=== PATIENT | male | born 1945 | race Caucasian/White ===

== ENCOUNTER → 2016-08-15 | Outpatient (CLI) | payer OTHER ==
[2016-08-15 10:33] LABS: BASO ABS # 0.06 K/uL (0-0.2); COMPLETE YES; HEMATOCRIT 40.7 % (42-52); IG% 0.2 %; LYMPH % 20.5 %; LYMPH ABS # 1.17 K/uL (1.2-3.4); MEAN CELL VOLUME 89.1 fL (80-100); MEAN CORPUSCULAR HEMOGLOBIN 30.2 pg (25-34); MEAN CORPUSCULAR HGB CONC 33.9 g/dl (32-36); MEAN PLATELET VOLUME 9.1 fL (7.4-10.4); MONO % 12.2 %; NEUT % 63.1 %; PLATELET COUNT 283 K/uL (130-400); RED BLOOD COUNT 4.57 M/uL (4.7-6.1); WHITE BLOOD COUNT 5.72 K/uL (4.8-10.8)
[2016-08-15 10:41] LABS: PROTHROMBIN TIME (PATIENT) 21.6 SECONDS (9.0-12.0)
[2016-08-15 11:00] LABS: ALT/SGPT 38 U/L (12-78); AST/SGOT 22 U/L (15-37); BLOOD UREA NITROGEN 20 mg/dl (7-18); BUN/CREATININE RATIO 16.7 (10-20); CARBON DIOXIDE 27 mmol/L (21-32); CHLORIDE 99 mmol/L (98-107); GLUCOSE 176 mg/dl (70-99); POTASSIUM 4.1 mmol/L (3.5-5.1); SODIUM 133 mmol/L (136-145)
[2016-08-15 11:05] LABS: ALB/GLOB RATIO 1.1 (0.9-2); ALKALINE PHOSPHATASE 53 U/L (45-117); CHOLESTEROL 194 mg/dl (0-200); HDL CHOLESTEROL 48 mg/dl; LDL CHOLESTEROL CALCULATED 115 mg/dl; TRIGLYCERIDES 154 mg/dl (0-150); VERY LOW DENSITY LIPOPROT CALC 31 mg/dl
[2016-08-15 11:13] LABS: RATIO 66.3 mcg/mg (0-30.0)
[2016-08-15 11:26] LABS: ESTIMATED AVERAGE GLUCOSE 151 mg/dl; HA1C FLAG Normal (Normal)
--- NOTE | 2016-08-21 09:49 | CODING QUERY MEDICAL NECESSITY ---
SUPPORTING DIAGNOSIS NEEDED A supporting diagnosis is required for the test/procedure performed on this patient in order for us to be reimbursed by the patient's insurance. Please provide a supporting diagnosis for the following test/procedure listed below next to the test name along with your signature. *If there is no additional diagnosis for this patient that would support the following test/procedure please document that below next to the test/procedure. Test(s)/Procedure(s) that require a supporting diagnosis: * VITAMIN B12 DIAGNOSIS: Provider Signature: Date: Thank you Lianna [place] [employer] Once completed, please kindly fax back to [phone] For questions please call [phone]
== END | disposition home or self-care (01) ==
LOC: C.LAB1850 09:55
PROVIDERS: ATTEND Internal Medicine
DX: E11.9 Type 2 diabetes mellitus without complications (principal); I10 Essential (primary) hypertension; Z12.5 Encounter for screening for malignant neoplasm of prostate; Z79.01 Long term (current) use of anticoagulants

== ENCOUNTER → 2016-09-12 | Outpatient (CLI) | payer OTHER ==
[2016-09-12 10:26] LABS: INR 1.7 (0.9-1.1); PROTHROMBIN TIME (PATIENT) 18.1 SECONDS (9.0-12.0)
== END | disposition home or self-care (01) ==
LOC: C.LAB1850 09:23
PROVIDERS: ATTEND Internal Medicine
DX: I51.3 Intracardiac thrombosis, not elsewhere classified (principal); Z79.01 Long term (current) use of anticoagulants

== ENCOUNTER 2017-05-04 11:41 | Inpatient (IN) | payer OTHER ==
[~2017-05-04] VITALS: Ht 177.8 cm; Wt 83.0 kg
[2017-05-04] MEDS ORDERED: ASPIRIN 81 MG CHEW PO STA (12:04)
--- NOTE | 2017-05-04 12:07 | EMERGENCY ROOM VISIT NOTE ---
History Report prepared by Carlos: Cara Marks Under the Supervision of: Dr. Martín Lucia M.D. First contact with patient: 11:59 Chief Complaint: ABDOMINAL PAIN Stated Complaint: DIAPHRAM PAIN -ABD Nursing Triage Summary: pt sent over from walk in clinic with c/o epigastric pain since sat. 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 Pain is sharp, located in the epigastric area. No radiation of the pain. He is accompanied by his who notes he has not been eating normally lately. He denies any blood in his stool or urine, nausea, vomiting, difficulty breathing, LOC, or chest pain. He rates the pain as a 6/10 in severity and describes it as "gas pains." Source of History: patient, spouse/significant other () Onset: 3 days sea captain Position: abdomen, other (diaphragm) Symptom Intensity: 6/10 Quality: other (persistent, gas pains) Timing: worsening Associated Symptoms: No LOC, No chest pain, No nausea, No vomiting, No hematochezia, No urinary symptoms Note: Negative difficulty breathing. Review of Systems See HPI for pertinent positives and negatives. A total of ten systems were reviewed and were otherwise negative. Family History Family history omitted secondary to the patient's age. Social History Smoking Status: Unknown if Ever Smoked Smokeless Tobacco Use: Unknown Marital Status: Occupation Status: retired Current/Historical Medications Scheduled Atorvastatin (Lipitor), 1 TAB PO DAILY Metformin Hcl (Glucophage), 500 MG PO BID Quinapril Hcl (Quinapril Hcl), 1 TAB PO DAILY Warfarin Sod (Jantoven), 7.5 MG PO DAILY Warfarin Sod (Jantoven), 10 MG PO DAILY Miscellaneous Medications Omeprazole (Prilosec), 10 MG PO Spironolactone (Aldactone), 25 MG PO Allergies Coded Allergies: No Known Allergies (Unverified , 05/04/17) Physical Exam Vital Signs Date Time Temp Pulse Resp B/P (MAP) Pulse Ox O2 Delivery O2 Flow Rate FiO2 05/04/17 17:03 107 16 137/88 95 Room Air 05/04/17 16:07 105 05/04/17 15:57 108 20 154/96 95 Room Air 05/04/17 14:54 99 18 116/66 95 Room Air 05/04/17 13:38 101 18 135/76 93 Room Air 05/04/17 12:09 97 Room Air 05/04/17 12:06 102 05/04/17 12:03 100 Room Air 05/04/17 11:47 36.8 123 18 145/96 96 Physical Exam Physical Exam GENERAL: He is oriented to person, place, and time. He appears well-developed and well-nourished. He does not appear distressed. ____ HENT: Exam performed. Head: Normocephalic and atraumatic. Right Ear: External ear normal. No mastoid tenderness. Left Ear: External ear normal. No mastoid tenderness. Mouth/Throat: The oropharynx is clear and moist. No trismus in the jaw. No dental abscesses or uvula swelling. No oropharyngeal exudate or tonsillar abscesses. ____ EYES: Conjunctivae and EOM are normal. Pupils are equal, round, and reactive to light. Right eye exhibits no discharge. Left eye exhibits no discharge. No scleral icterus. ____ NECK: Normal range of motion. Neck supple. No JVD present. No spinous process tenderness present. No carotid bruit present. No rigidity. No tracheal deviation and normal range of motion present. No Brudzinski's sign and no Kernig 's sign noted. ____ CV: Normal rate, regular rhythm, normal heart sounds and intact distal pulses. There is no peripheral edema. Palpable radial pulses bue. ____ PULM/CHEST: Effort normal and breath sounds normal. No respiratory distress. No stridor. He has no wheezes. He has no rales. Chest Wall: He exhibits no tenderness. ____ ABD: Abdomen soft, no guarding. Pain on palpation of the right upper quadrant region and epigastric area. Patton sign negative. No pain on palpation over McBurney's point. Rebound negative. Rovsing negative. MUSC/SKEL: Normal range of motion. There is no peripheral edema, tenderness or deformity. LYMPH: No cervical adenopathy. ____ NEURO: He is alert and oriented to person, place, and time. He has normal strength. No cranial nerve deficit or sensory deficit. Coordination and gait normal. GCS eye subscore is 4. GCS verbal subscore is 5. GCS motor subscore is 6. Cerebellar tests wnl. ____ SKIN: Skin is warm and dry. He is not diaphoretic. ____ PSYCH: He has a normal mood and affect. His behavior is normal. Judgment and thought content normal. ____ Medical Decision & Procedures ER Provider Diagnostic Interpretation: Radiology results as stated below per my review and radiologist interpretation: GALLBLADDER-ABD LIMITED HISTORY: 72 years-old Male ruq pain acute right upper quadrant abdominal pain COMPARISON: Acute abdominal series radiographs of same day TECHNIQUE: Multiple real-time sonogram images of the abdominal right upper quadrant were obtained assessing grayscale appearance and color flow FINDINGS: Pancreas is mostly obscured by bowel gas. Increased echogenicity of the hepatic parenchyma is noted without focal hepatic mass lesion or intrahepatic biliary ductal dilation. Diffusely sludge filled gallbladder is noted along with layering gallbladder stones. Edematous thickened gallbladder wall measures up to 6 mm. There is trace pericholecystic fluid with negative sonographic Patton sign. Common bile duct is mildly dilated for patient's age, 8 mm. No obstructing stone or biliary lesion identified. Imaged right kidney demonstrates no acute abnormality or hydronephrosis. IMPRESSION: 1. Diffusely sludge filled gallbladder is noted with layering cholelithiasis, gallbladder wall thickening and mild pericholecystic fluid. Sonographic Patton sign was reported as negative. Correlate clinically to exclude developing acute cholecystitis. 2. Mild dilation of the common bile duct, 8 mm without obstructing stone or lesion identified. 3. Increased echogenicity of the liver is nonspecific and may be secondary to fatty infiltration or fibrotic changes. The above report was generated using voice recognition software. It may contain grammatical, syntax or spelling errors. Electronically signed by: Jonnathan Larson M.D. 05/04/2017 1:31 PM Dictated Date/Time: 05/04/2017 1:28 PM ABDOMEN 2VIEW W/PA CHEST RTN HISTORY: 72 years-old Male epigastric pain cp acute epigastric and atypical chest pain COMPARISON: Right upper quadrant ultrasound of same day TECHNIQUE: PA view the chest with erect and supine views of the abdomen FINDINGS: Cardiac mediastinal and hilar silhouettes are within normal limits. Hazy subsegmental right basilar opacities. Atherosclerosis of the aorta. No pneumothorax, pleural effusion or overt pulmonary edema. Bones of the chest appear grossly intact. Cholelithiasis of the abdominal right upper quadrant with 6 mm gallstone. Linear 4 mm density of the left upper abdomen suggests renal calculus. No pneumoperitoneum or pneumatosis. Bowel gas pattern is nonobstructive. Moderate volume of formed stool involves the cecum and splenic flexure. No fracture. Degenerative changes of the hips and spine. IMPRESSION: 1. Nonobstructive bowel gas pattern. 2. Subsegmental right basilar opacities suggest atelectasis. 3. Cholelithiasis. 4. 4 mm density of the left upper abdomen suggests possible renal calculus. The above report was generated using voice recognition software. It may contain grammatical, syntax or spelling errors. Electronically signed by: Jonnathan Larson M.D. 05/04/2017 1:46 PM Dictated Date/Time: 05/04/2017 1:43 PM Laboratory Results 05/04/17 12:10 Red Blood Count 4.60, Mean Corpuscular Volume 88.0, Mean Corpuscular Hemoglobin 31.7, Mean Corpuscular Hemoglobin Concent 36.0, Mean Platelet Volume 9.1, Neutrophils (%) (Auto) 76.3, Lymphocytes (%) (Auto) 9.5, Monocytes (%) (Auto) 13.4, Eosinophils (%) (Auto) 0.2, Basophils (%) (Auto) 0.4, Neutrophils # (Auto ) 10.90, Lymphocytes # (Auto) 1.35, Monocytes # (Auto) 1.91, Eosinophils # (Auto ) 0.03, Basophils # (Auto) 0.05 05/04/17 12:10 Test 05/04/17 12:10 05/04/17 16:20 White Blood Count 14.27 K/uL (4.8-10.8) Red Blood Count 4.60 M/uL (4.7-6.1) Hemoglobin 14.6 g/dL (14.0-18.0) Hematocrit 40.5 % (42-52) Mean Corpuscular Volume 88.0 fL (80-100) Mean Corpuscular Hemoglobin 31.7 pg (25-34) Mean Corpuscular Hemoglobin Concent 36.0 g/dl (32-36) Platelet Count 291 K/uL (130-400) Mean Platelet Volume 9.1 fL (7.4-10.4) Neutrophils (%) (Auto) 76.3 % Lymphocytes (%) (Auto) 9.5 % Monocytes (%) (Auto) 13.4 % Eosinophils (%) (Auto) 0.2 % Basophils (%) (Auto) 0.4 % Neutrophils # (Auto) 10.90 K/uL (1.4-6.5) Lymphocytes # (Auto) 1.35 K/uL (1.2-3.4) Monocytes # (Auto) 1.91 K/uL (0.11-0.59) Eosinophils # (Auto) 0.03 K/uL (0-0.5) Basophils # (Auto) 0.05 K/uL (0-0.2) RDW Standard Deviation 41.7 fL (36.4-46.3) RDW Coefficient of Variation 13.1 % (11.5-14.5) Immature Granulocyte % (Auto) 0.2 % Immature Granulocyte # (Auto) 0.03 K/uL (0.00-0.02) Prothrombin Time 19.0 SECONDS (9.0-12.0) Prothromb Time International Ratio 1.8 (0.9-1.1) Activated Partial Thromboplast Time 35.9 SECONDS (21.0-31.0) Partial Thromboplastin Ratio 1.4 Anion Gap 10.0 mmol/L (3-11) Est Creatinine Clear Calc Drug Dose 55.3 ml/min Estimated GFR () 67.9 Estimated GFR (Non- 58.6 BUN/Creatinine Ratio 12.0 (10-20) Calcium Level 9.3 mg/dl (8.5-10.1) Total Bilirubin 1.1 mg/dl (0.2-1) Direct Bilirubin 0.3 mg/dl (0-0.2) Aspartate Amino Transf (AST/SGOT) 18 U/L (15-37) Alanine Aminotransferase (ALT/SGPT) 39 U/L (12-78) Alkaline Phosphatase 67 U/L (45-117) Pro-B-Type Natriuretic Peptide 317 pg/ml (0-900) Total Protein 8.0 gm/dl (6.4-8.2) Albumin 3.9 gm/dl (3.4-5.0) Lipase 137 U/L (73-393) Laboratory results reviewed by me Pol[place] Administered Medications (Trade) Dose Ordered Sig/Yvan Route Start Time Stop Time Status Last Admin Dose Admin Aspirin (Aspirin Chew) 324 mg NOW STAT PO 05/04/17 12:04 05/04/17 12:07 DC 05/04/17 12:10 324 MG Ceftriaxone Sodium (Rocephin Inj) 1 gm NOW STAT IV 05/04/17 15:24 05/04/17 15:25 DC 05/04/17 15:41 1 GM Metronidazole (Flagyl / Nss) 500 mg NOW STAT IV 05/04/17 15:24 05/04/17 15:25 DC 05/04/17 15:41 500 MG ECG Per My Interpretation Indication: abdominal pain Rate (beats per minute): 99 Rhythm: normal sinus Findings: other ([place] and QRS and QTC within normal limits, no ST elevation or depression ) ED Course 1200: The patient was evaluated in room B12. A complete history and physical exam was performed. 1602: Patient tachycardic. Labs show leukocytosis of 14. Alkaline phosphatase and LFTs within normal limits. Ultrasound of the right upper quadrant was concerning for cholecystitis. Discussed with GI the possibility that there could be a component of choledocholithiasis, however they disagreed given that there is no elevation in alkaline or LFTs. Dr. Hardin surgery application support intern evaluated the patient. He states the patient will be admitted to the medicine service and he will perform surgery on Saturday. He agreed with the antibiotics Rocephin and Flagyl to be given. 1650: Discussed the patient's case with Dr. Levi, [facility] Hospitalist. The patient will be evaluated for further treatment and disposition. Medical Decision Labs show leukocytosis of 14. Alkaline phosphatase and LFTs within normal limits. Ultrasound of the right upper quadrant was concerning for cholecystitis. Discussed with GI the possibility that there could be a component of choledocholithiasis, however they disagreed given that there is no elevation in alkaline or LFTs. Dr. Hardin surgery application support intern evaluated the patient. He states the patient will be admitted to the medicine service and he will perform surgery on Saturday. He agreed with the antibiotics Rocephin and Flagyl to be given. Medication Reconcilliation Current Medication List: was personally reviewed by me Blood Pressure Screening Patient's blood pressure: Normal blood pressure Blood pressure disposition: Did not require urgent referral Consults Time Called: 1531 Consulting Physician: Dr. Hardin, [facility] thoracic surgeon Returned Call: [phone] He evaluated the patient. He states the patient will be admitted to the medicine service and he will perform surgery on Saturday. Additional Consults: Time Called: 1644 Consulted Physician: Dr. Levi, [facility] Hospitalist Returned Call: [phone] Additional Comments: Discussed the patient's case. The patient will be evaluated for further treatment and disposition. Impression Primary Impression: Acute cholecystitis Scribe Attestation The scribe's documentation has been prepared under my direction and personally reviewed by me in its entirety. I confirm that the note above accurately reflects all work, treatment, procedures, and medical decision making performed by me. The chart was completed utilizing [email or web address] Speech voice recognition software. Grammatical errors, random word insertions, pronoun errors, and incomplete sentences are an occasional consequence of this system due to software limitations, ambient noise, and hardware issues. Any formal questions or concerns about the content, text, or information contained within the body of this dictation should be directly addressed to the physician for clarification. Departure Information Dispostion Being Evaluated By Hospitalist (Dr. Levi, [facility] Hospitalist) Referrals RV. Lopez MD (PCP) Patient Instructions My [facility]
[2017-05-04 12:32] LABS: BASO % 0.4 %; BASO ABS # 0.05 K/uL (0-0.2); EOS % 0.2 %; EOS ABS # 0.03 K/uL (0-0.5); HEMATOCRIT 40.5 % (42-52); HEMOGLOBIN 14.6 g/dL (14.0-18.0); IG# 0.03 K/uL (0.00-0.02); LYMPH % 9.5 %; LYMPH ABS # 1.35 K/uL (1.2-3.4); MEAN CORPUSCULAR HEMOGLOBIN 31.7 pg (25-34); MEAN PLATELET VOLUME 9.1 fL (7.4-10.4); MONO % 13.4 %; MONO ABS # 1.91 K/uL (0.11-0.59); NEUT % 76.3 %; PLATELET COUNT 291 K/uL (130-400); RED CELL DISTRIBUTION WIDTH CV 13.1 % (11.5-14.5); RED CELL DISTRIBUTION WIDTH SD 41.7 fL (36.4-46.3); WHITE BLOOD COUNT 14.27 K/uL (4.8-10.8)
[2017-05-04] MEDS ORDERED: GLC/500 PO (12:41)
[2017-05-04] MEDS ORDERED: WARF7.5T4 PO (12:41)
[2017-05-04] MEDS ORDERED: ATOR-24 PO (12:41)
[2017-05-04] MEDS ORDERED: QUIN20TA30 PO (12:41)
[2017-05-04] MEDS ORDERED: OMEP10CA4 PO (12:41)
[2017-05-04] MEDS ORDERED: SPIR25TA PO (12:41)
[2017-05-04] MEDS ORDERED: WARF10TA4 PO (12:41)
[2017-05-04 12:44] LABS: ALBUMIN 3.9 gm/dl (3.4-5.0); ALT/SGPT 39 U/L (12-78); AST/SGOT 18 U/L (15-37); BLOOD UREA NITROGEN 15 mg/dl (7-18); CALCIUM 9.3 mg/dl (8.5-10.1); CARBON DIOXIDE 24 mmol/L (21-32); CREATININE 1.21 mg/dl (0.60-1.40); GLUCOSE 221 mg/dl (70-99); INR 1.8 (0.9-1.1); LIPASE 137 U/L (73-393); POTASSIUM 4.2 mmol/L (3.5-5.1); PTT PATIENT 35.9 SECONDS (21.0-31.0); SODIUM 131 mmol/L (136-145)
[2017-05-04 12:49] LABS: ALKALINE PHOSPHATASE 67 U/L (45-117)
--- NOTE | 2017-05-04 13:32 | DIAGNOSTIC IMAGING REPORT ---
GALLBLADDER-ABD LIMITED HISTORY: 72 years-old Male ruq pain acute right upper quadrant abdominal pain COMPARISON: Acute abdominal series radiographs of same day TECHNIQUE: Multiple real-time sonogram images of the abdominal right upper quadrant were obtained assessing grayscale appearance and color flow FINDINGS: Pancreas is mostly obscured by bowel gas. Increased echogenicity of the hepatic parenchyma is noted without focal hepatic mass lesion or intrahepatic biliary ductal dilation. Diffusely sludge filled gallbladder is noted along with layering gallbladder stones. Edematous thickened gallbladder wall measures up to 6 mm. There is trace pericholecystic fluid with negative sonographic Patton sign. Common bile duct is mildly dilated for patient's age, 8 mm. No obstructing stone or biliary lesion identified. Imaged right kidney demonstrates no acute abnormality or hydronephrosis. IMPRESSION: 1. Diffusely sludge filled gallbladder is noted with layering cholelithiasis, gallbladder wall thickening and mild pericholecystic fluid. Sonographic Patton sign was reported as negative. Correlate clinically to exclude developing acute cholecystitis. 2. Mild dilation of the common bile duct, 8 mm without obstructing stone or lesion identified. 3. Increased echogenicity of the liver is nonspecific and may be secondary to fatty infiltration or fibrotic changes. The above report was generated using voice recognition software. It may contain grammatical, syntax or spelling errors. Electronically signed by: Jonnathan Larson M.D. 05/04/2017 1:31 PM Dictated Date/Time: 05/04/2017 1:28 PM
--- NOTE | 2017-05-04 13:47 | DIAGNOSTIC IMAGING REPORT ---
ABDOMEN 2VIEW W/PA CHEST RTN HISTORY: 72 years-old Male epigastric pain cp acute epigastric and atypical chest pain COMPARISON: Right upper quadrant ultrasound of same day TECHNIQUE: PA view the chest with erect and supine views of the abdomen FINDINGS: Cardiac mediastinal and hilar silhouettes are within normal limits. Hazy subsegmental right basilar opacities. Atherosclerosis of the aorta. No pneumothorax, pleural effusion or overt pulmonary edema. Bones of the chest appear grossly intact. Cholelithiasis of the abdominal right upper quadrant with 6 mm gallstone. Linear 4 mm density of the left upper abdomen suggests renal calculus. No pneumoperitoneum or pneumatosis. Bowel gas pattern is nonobstructive. Moderate volume of formed stool involves the cecum and splenic flexure. No fracture. Degenerative changes of the hips and spine. IMPRESSION: 1. Nonobstructive bowel gas pattern. 2. Subsegmental right basilar opacities suggest atelectasis. 3. Cholelithiasis. 4. 4 mm density of the left upper abdomen suggests possible renal calculus. The above report was generated using voice recognition software. It may contain grammatical, syntax or spelling errors. Electronically signed by: Jonnathan Larson M.D. 05/04/2017 1:46 PM Dictated Date/Time: 05/04/2017 1:43 PM
[2017-05-04] MEDS ORDERED: METRONIDAZOLE 500MG / 100ML NSS IV STA (15:24)
[2017-05-04] MEDS ORDERED: CEFTRIAXONE SOD INJ 1 GM ADDVIAL IV STA (15:24)
[2017-05-04] MEDS ORDERED: VANCOMYCIN 1GM/270ML NSS IV STA (16:20)
--- NOTE | 2017-05-04 16:26 | Surgery Consultation ---
Consultation Date of Consultation: May 04, 2017. Attending Physician: History of Present Illness The patient is a 72 year old male who presents to the Emergency Room with complaints of worsening and persistent abdominal pain and diaphragm pain beginning 3 days [employer]. He is accompanied by his who notes he has not been eating normally lately. He denies any blood in his stool or urine, nausea, vomiting, difficulty breathing, LOC, or chest pain. He rates the pain as a 6.10 in severity and describes it as "gas pains." I saw pt at ER, and reviewed pt's H/P with pt, pt is still have epigastric pain , with nausea, no vomiting, pt denies fever, no diarrhea, Past Medical/Surgical History Medical Problems: (1) Acute cholecystitis Status: Acute Social History Smoking Status: Former Smoker Smokeless Tobacco Use: No Alcohol Use: occasionally Drug Use: none Marital Status: Occupation Status: retired Allergies Coded Allergies: No Known Allergies (Unverified , 05/04/17) Home Medications Scheduled Atorvastatin (Lipitor), 1 TAB PO DAILY Metformin Hcl (Glucophage), 500 MG PO BID Quinapril Hcl (Quinapril Hcl), 1 TAB PO DAILY Warfarin Sod (Jantoven), 7.5 MG PO DAILY Warfarin Sod (Jantoven), 10 MG PO DAILY Miscellaneous Medications Omeprazole (Prilosec), 10 MG PO Spironolactone (Aldactone), 25 MG PO Review of Systems Constitutional: No fever, No chills, No sweats, No weight loss, No weakness, No fatigue, No problem reported Eyes: No worsening of vision, No eye pain, No redness, No discharge, No diplopia, No problem reported ENT: No hearing loss, No unusual epistaxis, No nasal symptoms, No sore throat, No tinnitus, No dental problems, No trouble swallowing, No problem reported Respiratory: No cough, No sputum, No wheezing, No shortness of breath, No dyspnea on exertion, No dyspnea at rest, No hemoptysis, No problem reported Cardiovascular: + chest pain, + problem reported (GA > 10 years) Abdomen: + pain, + nausea, + vomiting Musculoskeletal: No joint pain, No muscle pain, No swelling, No calf pain, No problem reported Genitourinary - Male: No hematuria, No dysuria, No urinary frequency, No urinary urgency, No urinary hesitancy, No urinary retention, No urinary incontinence, No penile discharge, No lesions, No impotence, No problem reported Neurologic: + problem reported (stroke ) Psychiatric: No depression symptoms, No anhedonism, No anxiety, No insomnia, No substance abuse, No problem reported Endocrine: No fatigue, No excessive thirst, No excessive urination, No problem reported Hematologic / Lymphatic: No abnormal bleeding/bruising, No clotting problems, No swollen lymph nodes, No night sweats, No problem reported Allergic / Immunologic: No environmental allergies, No seasonal allergies, No pet sensitivities, No food allergies, No hives, No frequent infections, No poor healing, No prolonged convalescence, No problem reported Physical Exam Date Time Temp Pulse Resp B/P (MAP) Pulse Ox O2 Delivery O2 Flow Rate FiO2 05/04/17 16:07 105 05/04/17 15:57 108 20 154/96 95 Room Air 05/04/17 14:54 99 18 116/66 95 Room Air 05/04/17 13:38 101 18 135/76 93 Room Air 05/04/17 12:09 97 Room Air 05/04/17 12:06 102 05/04/17 12:03 100 Room Air 05/04/17 11:47 36.8 123 18 145/96 96 General Appearance: WD/WN, + mild distress Head: normocephalic Eyes: normal inspection ENT: normal ENT inspection Neck: supple, no JVD Respiratory/Chest: chest non-tender, lungs clear Cardiovascular: regular rate, rhythm, no edema, no gallop, no JVD, no murmur Abdomen/GI: normal bowel sounds, soft, no organomegaly, no pulsatile mass, normal rectal exam, + tenderness (at epigastric area, no rebound pain) Extremities/Musculoskelatal: normal inspection, no calf tenderness, normal capillary refill Neurologic/Psych: no motor/sensory deficits, alert, normal mood/affect Skin: normal color, warm/dry, no rash Lymphatic: no adenopathy Laboratory Results Last 24 Hours Test 05/04/17 12:10 White Blood Count 14.27 K/uL Red Blood Count 4.60 M/uL Hemoglobin 14.6 g/dL Hematocrit 40.5 % Mean Corpuscular Volume 88.0 fL Mean Corpuscular Hemoglobin 31.7 pg Mean Corpuscular Hemoglobin Concent 36.0 g/dl Platelet Count 291 K/uL Mean Platelet Volume 9.1 fL Neutrophils (%) (Auto) 76.3 % Lymphocytes (%) (Auto) 9.5 % Monocytes (%) (Auto) 13.4 % Eosinophils (%) (Auto) 0.2 % Basophils (%) (Auto) 0.4 % Neutrophils # (Auto) 10.90 K/uL Lymphocytes # (Auto) 1.35 K/uL Monocytes # (Auto) 1.91 K/uL Eosinophils # (Auto) 0.03 K/uL Basophils # (Auto) 0.05 K/uL RDW Standard Deviation 41.7 fL RDW Coefficient of Variation 13.1 % Immature Granulocyte % (Auto) 0.2 % Immature Granulocyte # (Auto) 0.03 K/uL Prothrombin Time 19.0 SECONDS Prothromb Time International Ratio 1.8 Activated Partial Thromboplast Time 35.9 SECONDS Partial Thromboplastin Ratio 1.4 Sodium Level 131 mmol/L Potassium Level 4.2 mmol/L Chloride Level 97 mmol/L Carbon Dioxide Level 24 mmol/L Anion Gap 10.0 mmol/L Blood Urea Nitrogen 15 mg/dl Creatinine 1.21 mg/dl Est Creatinine Clear Calc Drug Dose 55.3 ml/min Estimated GFR () 67.9 Estimated GFR (Non- 58.6 BUN/Creatinine Ratio 12.0 Random Glucose 221 mg/dl Calcium Level 9.3 mg/dl Total Bilirubin 1.1 mg/dl Direct Bilirubin 0.3 mg/dl Aspartate Amino Transf (AST/SGOT) 18 U/L Alanine Aminotransferase (ALT/SGPT) 39 U/L Alkaline Phosphatase 67 U/L Troponin I < 0.015 ng/ml Pro-B-Type Natriuretic Peptide 317 pg/ml Total Protein 8.0 gm/dl Albumin 3.9 gm/dl Lipase 137 U/L Assessment & Plan U/S study-FINDINGS: Pancreas is mostly obscured by bowel gas. Increased echogenicity of the hepatic parenchyma is noted without focal hepatic mass lesion or intrahepatic biliary ductal dilation. Diffusely sludge filled gallbladder is noted along with layering gallbladder stones. Edematous thickened gallbladder wall measures up to 6 mm. There is trace pericholecystic fluid with negative sonographic Patton sign. Common bile duct is mildly dilated for patient's age, 8 mm. No obstructing stone or biliary lesion identified. Imaged right kidney demonstrates no acute abnormality or hydronephrosis. IMPRESSION: 1. Diffusely sludge filled gallbladder is noted with layering cholelithiasis, gallbladder wall thickening and mild pericholecystic fluid. Sonographic Patton sign was reported as negative. Correlate clinically to exclude developing acute cholecystitis. 2. Mild dilation of the common bile duct, 8 mm without obstructing stone or lesion identified. 3. Increased echogenicity of the liver is nonspecific and may be secondary to fatty infiltration or fibrotic changes. Assessment: pt is a 72 year old male who presents to ER with acute abdominal pain, U/S study- acute cholecystitis with gallstones. IMP:acute cholecystitis with gallstones. Plan, I re: hospitalist will admit pt, hold coumadin for 2 days, continue po 81 mg ASA once a day, IV fluid, iv antibiotic, cipro + glagyl, pt will have laparoscopic cholecystectomy, possible open or cholangiogram on Saturday, NPO from [place] on Saturday, D/W benefits, risks and alternatives of the surgery, pt understood, he and his agree with [facility] plan. I answered all questions,
[2017-05-04] MEDS ORDERED: GLUCOSE 10 TABS/TUBE PO PRN (16:30)
[2017-05-04] MEDS ORDERED: NITROGLYCERIN 0.4 MG SL PER TAB CHARGE SL PRN (16:30)
[2017-05-04] MEDS ORDERED: ACETAMINOPHEN 325 MG TAB PO PRN (16:30)
[2017-05-04] MEDS ORDERED: MAGNESIUM HYDROXIDE SUSP 30 ML UDC PO PRN (16:30)
[2017-05-04] MEDS ORDERED: ALUMINUM/MAGNESIUM/SIMETH (MAALOX MAX) 30 ML UDC PO PRN (16:30)
[2017-05-04] MEDS ORDERED: GLUCOSE 40% GEL 15 GM TUBE PO PRN (16:30)
[2017-05-04] MEDS ORDERED: ONDANSETRON INJ 2 MG/ML 2 ML VIAL IV PRN (16:30)
[2017-05-04] MEDS ORDERED: GLUCAGON FOR INJ 1 MG VIAL SQ PRN (16:30)
[2017-05-04] MEDS ORDERED: ZOLPIDEM TARTRATE 5 MG TAB PO PRN ×2 (16:30)
[2017-05-04] MEDS ORDERED: HydrALAZINE HCL 20 MG/ML VIAL IV. PRN (16:30)
[2017-05-04] MEDS ORDERED: ENOXAPARIN 30 MG/0.3 ML SYR SC SCH (16:30)
[2017-05-04] MEDS ORDERED: PIPERACILL/TAZOBAC CONSULT ACTIVE PRN (16:30)
[2017-05-04] MEDS ORDERED: DEXTROSE 50% 50 ML SYR IV PRN (16:30)
[2017-05-04] MEDS ORDERED: POLYETHYLENE (MIRALAX) 17 GM PACK PO PRN (16:30)
[2017-05-04] MEDS ORDERED: VANCOMYCIN INJ 2,000 MG in SODIUM CHLORIDE 0.9% 500ML 500 ML IV SCH (17:00)
[2017-05-04] MEDS ORDERED: PIPERACILL/TAZOBAC IV 4.5 GM in DEXTROSE 5% 100ML IV ONE (17:00)
[2017-05-04] MEDS ORDERED: VANCOMYCIN CONSULT ACTIVE PRN (17:00)
[2017-05-04] MEDS ORDERED: FAMOTIDINE 20MG/5ML IV PUSH IV STA (17:05)
[2017-05-04] MEDS ORDERED: PIPERACILLIN/TAZOBACTAM 4.5 GM/100ML D5W ONE (17:10)
--- NOTE | 2017-05-04 17:21 | History and Physical ---
History & Physical Date & Time of Service: May 04, 2017 at 17:07 Chief Complaint: Diaphram Pain -Abd Primary Care Physician: RV. Lopez MD History of Present Illness Source: patient, family 72 years old man with PMHx HTN, Dyslipidemia, DMII, CVA, left ventricular thrombus on chronic AC by coumadin and Hx of bradycardia on B sandro. He was in his regular state of health until 2 days prior to admission, patient suddenly at night had mid epigastric and right upper quadrant abdominal pain 9/ 10. No associated nausea or vomiting. Denies any diarrhea or blood in stool. Patient took Gas-X because he thought it gas pain. As per patient pain slightly subsided. Next morning pain reoccurred but was less intense. Patient felt the pain more towards the epigastric area rather than the right upper quadrant. Again no association with any nausea or vomiting or diarrhea. He qualify the pain as 5/10. He presented to the ED for further evaluation and management, his INR was 1.8. He was seen by surgeon who would like to hold Coumadin until Saturday and proceed with cholecystectomy. Does not smoke or drink denies any fever or chills Social History Smoking Status: Former Smoker Smokeless Tobacco Use: No Alcohol Use: occasionally Drug Use: none Marital Status: Occupational Status: retired Allergies Coded Allergies: No Known Allergies (Unverified , 05/04/17) Home Medications Scheduled Atorvastatin (Lipitor), 1 TAB PO DAILY Metformin Hcl (Glucophage), 500 MG PO BID Quinapril Hcl (Quinapril Hcl), 1 TAB PO DAILY Warfarin Sod (Jantoven), 7.5 MG PO DAILY Warfarin Sod (Jantoven), 10 MG PO DAILY Miscellaneous Medications Omeprazole (Prilosec), 10 MG PO Spironolactone (Aldactone), 25 MG PO Review of Systems Review of system Constitutional: No fever / no chills / no sweats / no weakness / no fatigue Eyes: no blurring of vision / no eye pain / no discharge / no redness ENT: no hearing loss / no epistaxis /no swallowing problems Respiratory: no cough / no wheezing / no SOB / no hemoptysis Cardiovascular: no Chest pain / no lower extremity edema / no palpitation Abdomen: Right upper quadrant and epigastric pain / no nausea / no vomiting / no constipation Musculoskeletal: no joint pain / no muscle pain / no joint swelling Genitourinary: no dysuria / no incontinence / no urinary retention Neurologic: no focal weakness / no numbness/tingling / no ataxia Psychiatric: no depression symptoms / no anxiety / no insomnia Endocrine: no excessive thirst / no excessive urination Hematologic: no abnormal bleeding / no bruising / no LN swelling Skin: No rash / no pallor Physical Exam Vital Signs Date Time Temp Pulse Resp B/P (MAP) Pulse Ox O2 Delivery O2 Flow Rate FiO2 05/04/17 16:07 105 05/04/17 15:57 108 20 154/96 95 Room Air 05/04/17 14:54 99 18 116/66 95 Room Air 05/04/17 13:38 101 18 135/76 93 Room Air 05/04/17 12:09 97 Room Air 05/04/17 12:06 102 05/04/17 12:03 100 Room Air 05/04/17 11:47 36.8 123 18 145/96 96 Physical examination General patient appears to be comfortable, not in acute distress HEENT: Atraumatic , normocephalic /no jaundice /no pallor /anicteric /no dry mucous membrane /normal external ear inspection Neck: Supple /no swelling /central trach Heart: S1/S2 normal/regular rate and rhythm/no gallop /no rub /no murmur Lungs: Clear to auscultation bilaterally/normal chest with expansion/no rhonchi/ no rales/no wheezing/no use of accessory muscles of respiration Abdomen: Soft/mild tenderness on the epigastric area/no guarding/no rebound/no organomegaly/no pulsatile mass Musculoskeletal: No swelling/no edema/no tenderness/normal range of motion Neuro exam: Awake alert oriented 3/cranial nerves II through XII appear to be intact/sensation intact/moves all extremities/no abnormal movements Psychiatric evaluation: No depressed mood/normal affect Skin: No rash on exposed skin area/no erythema Extremity: Normal pulse/no pitting edema/no clubbing or cyanosis Endocrine/lymphatic: No obvious lymphadenopathy /no lymphedema Diagnostics Laboratory Results Results Past 24 Hours Test 05/04/17 12:10 05/04/17 16:20 Range/Units White Blood Count 14.27 4.8-10.8 K/uL Red Blood Count 4.60 4.7-6.1 M/uL Hemoglobin 14.6 14.0-18.0 g/dL Hematocrit 40.5 42-52 % Mean Corpuscular Volume 88.0 80-100 fL Mean Corpuscular Hemoglobin 31.7 25-34 pg Mean Corpuscular Hemoglobin Concent 36.0 32-36 g/dl Platelet Count 291 130-400 K/uL Mean Platelet Volume 9.1 7.4-10.4 fL Neutrophils (%) (Auto) 76.3 % Lymphocytes (%) (Auto) 9.5 % Monocytes (%) (Auto) 13.4 % Eosinophils (%) (Auto) 0.2 % Basophils (%) (Auto) 0.4 % Neutrophils # (Auto) 10.90 1.4-6.5 K/uL Lymphocytes # (Auto) 1.35 1.2-3.4 K/uL Monocytes # (Auto) 1.91 0.11-0.59 K/uL Eosinophils # (Auto) 0.03 0-0.5 K/uL Basophils # (Auto) 0.05 0-0.2 K/uL RDW Standard Deviation 41.7 36.4-46.3 fL RDW Coefficient of Variation 13.1 11.5-14.5 % Immature Granulocyte % (Auto) 0.2 % Immature Granulocyte # (Auto) 0.03 0.00-0.02 K/uL Prothrombin Time 19.0 9.0-12.0 SECONDS Prothromb Time International Ratio 1.8 0.9-1.1 Activated Partial Thromboplast Time 35.9 21.0-31.0 SECONDS Partial Thromboplastin Ratio 1.4 Sodium Level 131 136-145 mmol/L Potassium Level 4.2 3.5-5.1 mmol/L Chloride Level 97 98-107 mmol/L Carbon Dioxide Level 24 21-32 mmol/L Anion Gap 10.0 3-11 mmol/L Blood Urea Nitrogen 15 7-18 mg/dl Creatinine 1.21 0.60-1.40 mg/dl Est Creatinine Clear Calc Drug Dose 55.3 ml/min Estimated GFR () 67.9 Estimated GFR (Non- 58.6 BUN/Creatinine Ratio 12.0 10-20 Random Glucose 221 70-99 mg/dl Calcium Level 9.3 8.5-10.1 mg/dl Total Bilirubin 1.1 0.2-1 mg/dl Direct Bilirubin 0.3 0-0.2 mg/dl Aspartate Amino Transf (AST/SGOT) 18 15-37 U/L Alanine Aminotransferase (ALT/SGPT) 39 12-78 U/L Alkaline Phosphatase 67 45-117 U/L Troponin I < 0.015 0-0.045 ng/ml Pro-B-Type Natriuretic Peptide 317 0-900 pg/ml Total Protein 8.0 6.4-8.2 gm/dl Albumin 3.9 3.4-5.0 gm/dl Lipase 137 73-393 U/L Microbiology Results 05/04/17 Blood Culture, Ordered Pending 05/04/17 Blood Culture, Ordered Pending Impression Assessment and Plan 72 years old man with PMHx HTN, Dyslipidemia, DMII, CVA, left ventricular thrombus on chronic AC by coumadin and Hx of bradycardia on B sandro. Presented with 2 days history of abdominal epigastric and right upper quadrant pain suggestive of acute cholecystitis. 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 Hold Coumadin and start heparin drip low dose from tomorrow morning, as per patient his INR has been ranging from 1.9-2.5 Consult cardiology for clearance for cholecystectomy. Hold metformin and start patient on sliding scale insulin Hold Aldactone and ANDRES inhibitor, start patient on IV fluid hydration Hydralazine as needed elevated blood pressure Avoid beta-sandro for now Pain management Pepcid IV 1 followed by Protonix daily SCD boots for DVT prophylaxis plus heparin drip Hold heparin drip prior to the surgery N.p.o. from Saturday. Plan discussed with surgeon Dr. Guzmán who recommended patient on full liquid diet until Saturday night Resuscitation Status VTE Prophylaxis Will order VTE Prophylaxis: Yes
[2017-05-04 18:00] VITALS: BP 151/87; PULSE 115; TEMP 37; O2SAT 93; Ht 177.8 cm; Wt 83.0 kg
[2017-05-04] MEDS ORDERED: FAMOTIDINE IV INJ 20 MG in SYRINGE 3 ML IV SCH (18:15)
[2017-05-04 18:21] VITALS: BP 151/87; PULSE 115; TEMP 37
[2017-05-04] MEDS ORDERED: NSS + 20MEQ KCL 1000ML 1,000 ML IV SCH ×2 (18:30→18:45)
[2017-05-04 18:33] VITALS: O2SAT 93
[2017-05-04] MEDS: SODIUM CHLORIDE 0.9% 1000ML 1,000 ML IV SCH (18:43)
[2017-05-04] MEDS: LACTOBACILLUS ACIDOPHILUS 1 GM PACK PO SCH (18:51)
[2017-05-04] MEDS: INSULIN ASPART 100 UNITS/ML 3 ML PEN SC SCH ×2 (18:55→20:56)
--- NOTE | 2017-05-04 19:11 | Pharmacy Progress Note ---
Pharmacy Antibiotic Consult Date of Service: May 04, 2017. Pharmacy Dosing Scope Pharmacy is consulted to initiate vancomycin and Zosyn IV dosing therapy, order appropriate labs and adjust drug dose/frequency. Subjective The patient is a 72 year old male admitted on May 04, 2017 at 16:45 with cholecystitis. History of type 2 diabetes. Objective Height (Feet): 5 Height (Inches): 10.00 Weight (Kilograms): 81.000 Lab Results (24hrs): Test 05/04/17 12:10 05/04/17 18:26 05/04/17 18:29 White Blood Count 14.27 K/uL (4.8-10.8) Red Blood Count 4.60 M/uL (4.7-6.1) Hemoglobin 14.6 g/dL (14.0-18.0) Hematocrit 40.5 % (42-52) Mean Corpuscular Volume 88.0 fL (80-100) Mean Corpuscular Hemoglobin 31.7 pg (25-34) Mean Corpuscular Hemoglobin Concent 36.0 g/dl (32-36) Platelet Count 291 K/uL (130-400) Mean Platelet Volume 9.1 fL (7.4-10.4) Neutrophils (%) (Auto) 76.3 % Lymphocytes (%) (Auto) 9.5 % Monocytes (%) (Auto) 13.4 % Eosinophils (%) (Auto) 0.2 % Basophils (%) (Auto) 0.4 % Neutrophils # (Auto) 10.90 K/uL (1.4-6.5) Lymphocytes # (Auto) 1.35 K/uL (1.2-3.4) Monocytes # (Auto) 1.91 K/uL (0.11-0.59) Eosinophils # (Auto) 0.03 K/uL (0-0.5) Basophils # (Auto) 0.05 K/uL (0-0.2) RDW Standard Deviation 41.7 fL (36.4-46.3) RDW Coefficient of Variation 13.1 % (11.5-14.5) Immature Granulocyte % (Auto) 0.2 % Immature Granulocyte # (Auto) 0.03 K/uL (0.00-0.02) Prothrombin Time 19.0 SECONDS (9.0-12.0) Prothromb Time International Ratio 1.8 (0.9-1.1) Activated Partial Thromboplast Time 35.9 SECONDS (21.0-31.0) Partial Thromboplastin Ratio 1.4 Sodium Level 131 mmol/L (136-145) Potassium Level 4.2 mmol/L (3.5-5.1) Chloride Level 97 mmol/L (98-107) Carbon Dioxide Level 24 mmol/L (21-32) Anion Gap 10.0 mmol/L (3-11) Blood Urea Nitrogen 15 mg/dl (7-18) Creatinine 1.21 mg/dl (0.60-1.40) Est Creatinine Clear Calc Drug Dose 55.3 ml/min Estimated GFR () 67.9 Estimated GFR (Non- 58.6 BUN/Creatinine Ratio 12.0 (10-20) Random Glucose 221 mg/dl (70-99) Calcium Level 9.3 mg/dl (8.5-10.1) Total Bilirubin 1.1 mg/dl (0.2-1) Direct Bilirubin 0.3 mg/dl (0-0.2) Aspartate Amino Transf (AST/SGOT) 18 U/L (15-37) Alanine Aminotransferase (ALT/SGPT) 39 U/L (12-78) Alkaline Phosphatase 67 U/L (45-117) Troponin I < 0.015 ng/ml (0-0.045) Pro-B-Type Natriuretic Peptide 317 pg/ml (0-900) Total Protein 8.0 gm/dl (6.4-8.2) Albumin 3.9 gm/dl (3.4-5.0) Lipase 137 U/L (73-393) Bedside Glucose 205 mg/dl (70-99) Micro Results: 05/04 blood x2 pending Recent Pertinent Medications Item Value Date Time Vancomycin HCl 275 ml @ 125 mls/hr 05/05/17 1000 1250 mg/Sodium Q16H/IV Chloride Piperacillin Sod/ 115 ml @ 28.75 mls/hr 05/05/17 0000 Tazobactam Sod Q8@0000,0800,1600/IV 3.375 gm/Dextrose Vancomycin HCl 540 ml @ 200 mls/hr 05/04/17 1700 2000 mg/Sodium TODAY@1700/IV 05/04/17 1736 Chloride Piperacillin Sod/ 120 ml @ 200 mls/hr 05/04/17 1700 Tazobactam Sod NOW ONCE/IV 05/04/17 1736 4.5 gm/Dextrose Ceftriaxone Sodium 1 gm 05/04/17 1524 (Rocephin Inj) NOW STAT/IV 05/04/17 1541 Metronidazole 500 mg 05/04/17 1524 (Flagyl / Nss) NOW STAT/IV 05/04/17 1541 Assessment & Plan Loading dose: vancomycin 2000 mg IV X 1 dose (~25 mg/kg) then: vancomycin 1250 mg IV every 16 hours. Goal peak level estimate: between 25-40 mcg/mL. Goal trough level estimate: between 15-20 mcg/mL. Trough has been ordered for: 05/06/17 before 1800 dose. Zosyn 4.5 Gm IV x1 loading dose, then 3.375 Gm IV (infused over 4 hr) every 8 hours for CrCl greater than 20 ml/hr. Pharmacy will continue to follow and will adjust dose/frequency as necessary. Thank you
[2017-05-04 20:00] VITALS: O2SAT 93
[2017-05-04 23:07] VITALS: BP 98/63; PULSE 112; TEMP 37.7; O2SAT 94
[2017-05-04] MEDS: PIPERACILL/TAZOBAC IV 3.375 GM in DEXTROSE 5% 100ML 100 ML IV SCH (23:35)
[2017-05-05] VITALS (7 sets, daily range): BP systolic 116–133; BP diastolic 72–80; PULSE 85–115; TEMP 36.7–37.6; O2SAT 91–95
[2017-05-05] MEDS: INSULIN ASPART 100 UNITS/ML 3 ML PEN SC SCH ×3 (05:57→17:31)
[2017-05-05 08:02] LABS: BASO % 0.3 %; BASO ABS # 0.04 K/uL (0-0.2); EOS % 0.2 %; EOS ABS # 0.03 K/uL (0-0.5); HEMATOCRIT 35.1 % (42-52); HEMOGLOBIN 12.6 g/dL (14.0-18.0); IG# 0.04 K/uL (0.00-0.02); LYMPH % 8.4 %; LYMPH ABS # 1.23 K/uL (1.2-3.4); MEAN CELL VOLUME 86.9 fL (80-100); MEAN CORPUSCULAR HEMOGLOBIN 31.2 pg (25-34); MEAN CORPUSCULAR HGB CONC 35.9 g/dl (32-36); MEAN PLATELET VOLUME 9.2 fL (7.4-10.4); MONO % 13.6 %; MONO ABS # 1.99 K/uL (0.11-0.59); NEUT % 77.2 %; NEUT ABS # 11.25 K/uL (1.4-6.5); PLATELET COUNT 270 K/uL (130-400); RED CELL DISTRIBUTION WIDTH CV 12.9 % (11.5-14.5); RED CELL DISTRIBUTION WIDTH SD 41.6 fL (36.4-46.3); WHITE BLOOD COUNT 14.58 K/uL (4.8-10.8)
[2017-05-05] MEDS: LACTOBACILLUS ACIDOPHILUS 1 GM PACK PO SCH ×3 (08:07→17:11)
[2017-05-05] MEDS: ATORVASTATIN 20 MG TAB PO SCH (08:07)
[2017-05-05 08:12] LABS: INR 2.1 (0.9-1.1)
[2017-05-05] MEDS: PIPERACILL/TAZOBAC IV 3.375 GM in DEXTROSE 5% 100ML 100 ML IV SCH ×2 (08:20→15:27)
[2017-05-05] MEDS ORDERED: PHYTONADIONE INJ 5 MG in SODIUM CHLORIDE 0.9% 50ML 50 ML IV ONE (08:50)
--- NOTE | 2017-05-05 08:55 | Progress Note ---
Subjective Date of Service: May 05, 2017. Subjective Pt evaluation today including: conversation w/ patient, physical exam, lab review, review of studies, conversation w/ fashion consultant selling, review of inpatient medication list Pain: epigastric, 6-8 out of 10 PO Intake: clears Voiding: no voiding problems patient says his epigastric pain is slightly increased, refuses pain medications no nausea, no flatus, no BM today HR elevated in the 110-120's, regular reviewed labs, WBC still high at 14k, Hb stable Cr was 1.2 on admission, awaiting repeat draw INR 2.1 this AM, was 1.8, discussed giving vitamin K reviewed surgical consultation, discussed with Dr. Hardin Problem List Medical Problems: (1) Acute cholecystitis Status: Acute Review of Systems Constitutional: + fever, + chills, + weakness, + fatigue, No sweats, No weight loss Abdomen: + pain (epigastric) All Other Systems: Reviewed and Negative Medications Current Inpatient Medications Medications (Trade) Dose Ordered Sig/Yvan Route Start Time Stop Time Status Last Admin Dose Admin Sodium Chloride 1,000 ml @ 125 mls/hr Q8H IV 05/04/17 20:30 06/03/17 20:29 05/04/17 18:43 50 MLS/HR Acetaminophen (Tylenol Tab) 650 mg Q4H PRN PO 05/04/17 16:30 06/03/17 16:29 Al Hydrox/Mg Hydrox/Simethicone (Maalox Max Susp) 15 ml Q4H PRN PO 05/04/17 16:30 06/03/17 16:29 Magnesium Hydroxide (Milk Of Magnesia Susp) 30 ml Q12H PRN PO 05/04/17 16:30 06/03/17 16:29 Zolpidem Tartrate (Ambien Tab) 5 mg HSZ PRN PO 05/04/17 16:30 06/03/17 16:29 Ondansetron HCl (Zofran Inj) 4 mg Q6H PRN IV 05/04/17 16:30 06/03/17 16:29 Nitroglycerin (Nitrostat Tab) 0.4 mg UD PRN SL 05/04/17 16:30 06/03/17 16:29 Polyethylene (Miralax Powder Packet) 17 gm DAILY PRN PO 05/04/17 16:30 06/03/17 16:29 Glucose (Glucose 40% Gel) 15-30 GRAMS 15 GRAMS... UD PRN PO 05/04/17 16:30 06/03/17 16:29 Glucose (Glucose Chew Tab) 4-8 Tablets 4 Tabl... UD PRN PO 05/04/17 16:30 06/03/17 16:29 Dextrose (Dextrose 50% 50ML Syringe) 25-50ML OF 50% DW IV FOR... UD PRN IV 05/04/17 16:30 06/03/17 16:29 Glucagon (Glucagon Inj) 1 mg UD PRN SQ 05/04/17 16:30 06/03/17 16:29 Hydralazine HCl (HydrALAZINE INJ) 15 mg Q6H PRN IV. 05/04/17 16:30 06/03/17 16:29 Piperacillin Sod/ Tazobactam Sod 3.375 gm/Dextrose 115 ml @ 28.75 mls/ hr Q8@0000,0800,1600 IV 05/05/17 00:00 05/15/17 00:00 05/05/17 08:20 28.75 MLS/HR Miscellaneous Information (Consult) 1 ea UD PRN N/A 05/04/17 16:30 06/03/17 16:29 Lactobacillus Acidophilus (Lactinex Granules Pack) 1 gm TIDM PO 05/04/17 18:15 06/03/17 18:14 05/05/17 08:07 1 GM Miscellaneous Information (Consult) 1 ea UD PRN N/A 05/04/17 17:00 06/03/17 16:59 Atorvastatin Calcium (Lipitor Tab) 40 mg DAILY PO 05/05/17 09:00 06/04/17 08:59 05/05/17 08:07 40 MG Pantoprazole Sodium 40 mg/ Syringe 10 ml @ 5 mls/min DAILY@11 IV 05/05/17 11:00 05/08/17 11:01 Insulin Aspart (novoLOG ASPART) SLIDING SCALE If C... Q6 SC 05/05/17 06:00 06/04/17 05:59 05/05/17 05:57 2 UNITS Vancomycin HCl 1250 mg/Sodium Chloride 275 ml @ 125 mls/hr Q16H IV 05/05/17 10:00 05/14/17 17:59 Phytonadione 5 mg/ Sodium Chloride 50.5 ml @ 101 mls/hr ONE ONCE IV 05/05/17 08:30 05/05/17 08:59 UNV Heparin Sodium/ Dextrose 500 ml @ 18 mls/hr Q24H PRN IV 05/05/17 14:00 06/04/17 08:59 UNV Objective Vital Signs Date Time Temp Pulse Resp B/P (MAP) Pulse Ox O2 Delivery O2 Flow Rate FiO2 05/05/17 07:40 37.2 114 20 133/80 (97) 91 Room Air 05/05/17 04:00 Room Air 05/05/17 03:57 37.6 103 22 127/77 (94) 94 Room Air 05/05/17 00:00 Room Air 05/04/17 23:07 37.7 112 18 98/63 (75) 94 Room Air 05/04/17 20:00 93 Room Air 05/04/17 18:33 93 Room Air 05/04/17 18:21 37.0 115 18 151/87 05/04/17 18:00 93 Room Air 05/04/17 18:00 93 Room Air 05/04/17 18:00 37.0 115 18 151/87 (108) 93 Room Air 05/04/17 17:03 107 16 137/88 95 Room Air 05/04/17 16:07 105 05/04/17 15:57 108 20 154/96 95 Room Air 05/04/17 14:54 99 18 116/66 95 Room Air 05/04/17 13:38 101 18 135/76 93 Room Air 05/04/17 12:09 97 Room Air 05/04/17 12:06 102 05/04/17 12:03 100 Room Air 05/04/17 11:47 36.8 123 18 145/96 96 Physical Exam General Appearance: WD/WN, no apparent distress Eyes: normal inspection, EOMI, sclerae normal ENT: normal ENT inspection, hearing grossly normal, pharynx normal Neck: supple, no adenopathy, no JVD, trachea midline Respiratory/Chest: chest non-tender, lungs clear, normal breath sounds, no respiratory distress, no accessory muscle use Cardiovascular: no edema, no gallop, no JVD, no murmur, + tachycardia Abdomen: normal bowel sounds, soft, no organomegaly, + tenderness (epigastric, RUQ) Extremities: normal range of motion, non-tender, normal inspection, no pedal edema, no calf tenderness, pelvis stable Neurologic/Psychiatric: arranger assembler II-XII nml as tested, no motor/sensory deficits, alert, normal mood/affect, oriented x 3 Skin: normal color, warm/dry, no rash Lymphatic: no adenopathy Laboratory Results Last 24 Hours Test 05/04/17 12:10 05/04/17 18:26 05/04/17 18:29 05/04/17 20:06 White Blood Count 14.27 K/uL Red Blood Count 4.60 M/uL Hemoglobin 14.6 g/dL Hematocrit 40.5 % Mean Corpuscular Volume 88.0 fL Mean Corpuscular Hemoglobin 31.7 pg Mean Corpuscular Hemoglobin Concent 36.0 g/dl Platelet Count 291 K/uL Mean Platelet Volume 9.1 fL Neutrophils (%) (Auto) 76.3 % Lymphocytes (%) (Auto) 9.5 % Monocytes (%) (Auto) 13.4 % Eosinophils (%) (Auto) 0.2 % Basophils (%) (Auto) 0.4 % Neutrophils # (Auto) 10.90 K/uL Lymphocytes # (Auto) 1.35 K/uL Monocytes # (Auto) 1.91 K/uL Eosinophils # (Auto) 0.03 K/uL Basophils # (Auto) 0.05 K/uL RDW Standard Deviation 41.7 fL RDW Coefficient of Variation 13.1 % Immature Granulocyte % (Auto) 0.2 % Immature Granulocyte # (Auto) 0.03 K/uL Prothrombin Time 19.0 SECONDS Prothromb Time International Ratio 1.8 Activated Partial Thromboplast Time 35.9 SECONDS Partial Thromboplastin Ratio 1.4 Sodium Level 131 mmol/L Potassium Level 4.2 mmol/L Chloride Level 97 mmol/L Carbon Dioxide Level 24 mmol/L Anion Gap 10.0 mmol/L Blood Urea Nitrogen 15 mg/dl Creatinine 1.21 mg/dl Est Creatinine Clear Calc Drug Dose 55.3 ml/min Estimated GFR () 67.9 Estimated GFR (Non- 58.6 BUN/Creatinine Ratio 12.0 Random Glucose 221 mg/dl Calcium Level 9.3 mg/dl Total Bilirubin 1.1 mg/dl Direct Bilirubin 0.3 mg/dl Aspartate Amino Transf (AST/SGOT) 18 U/L Alanine Aminotransferase (ALT/SGPT) 39 U/L Alkaline Phosphatase 67 U/L Troponin I < 0.015 ng/ml < 0.015 ng/ml Pro-B-Type Natriuretic Peptide 317 pg/ml Total Protein 8.0 gm/dl Albumin 3.9 gm/dl Lipase 137 U/L Bedside Glucose 205 mg/dl 197 mg/dl C-Reactive Protein 13.30 mg/dl Procalcitonin 0.11 ng/ml Test 05/05/17 05:53 05/05/17 07:27 Bedside Glucose 194 mg/dl White Blood Count 14.58 K/uL Red Blood Count 4.04 M/uL Hemoglobin 12.6 g/dL Hematocrit 35.1 % Mean Corpuscular Volume 86.9 fL Mean Corpuscular Hemoglobin 31.2 pg Mean Corpuscular Hemoglobin Concent 35.9 g/dl Platelet Count 270 K/uL Mean Platelet Volume 9.2 fL Neutrophils (%) (Auto) 77.2 % Lymphocytes (%) (Auto) 8.4 % Monocytes (%) (Auto) 13.6 % Eosinophils (%) (Auto) 0.2 % Basophils (%) (Auto) 0.3 % Neutrophils # (Auto) 11.25 K/uL Lymphocytes # (Auto) 1.23 K/uL Monocytes # (Auto) 1.99 K/uL Eosinophils # (Auto) 0.03 K/uL Basophils # (Auto) 0.04 K/uL RDW Standard Deviation 41.6 fL RDW Coefficient of Variation 12.9 % Immature Granulocyte % (Auto) 0.3 % Immature Granulocyte # (Auto) 0.04 K/uL Prothrombin Time 21.4 SECONDS Prothromb Time International Ratio 2.1 Assessment and Plan 72 years old man with PMHx HTN, Dyslipidemia, DMII, CVA, left ventricular thrombus on chronic AC by coumadin and Hx of bradycardia on B sandro. Presented with 2 days history of abdominal epigastric and right upper quadrant pain suggestive of acute cholecystitis. - Acute cholecystitis with sepsis, no evidence of organ failure or shock, POA mild increase in pain this AM, but it is fluctuating low grade temperature, WBC 14k continue Zosyn, will increase fluid rate to 125cc/hr plan for lap branden tomorrow CBD was 8mm which is normal given his age, no elevation in LFT to suggest choledocholithiasis INR 2.1 this AM, will reverse with vitamin K 5mg, repeat INR in the afternoon can start heparin gtt this afternoon with plans to stop tomorrow prior to OR NPO after midnight - H/o atrial thrombus, anticoagulated on Coumadin INR 2.1, reverse with Vitamin K for surgery, repeat INR this afternoon can provided heparin gtt in perioperative period - HTN: normally on Quinapril, holding given low normal BP and infection, BP stable - Dyslipidemia: Lipitor - DM type II: hold Metformin, use Novolog SS, monitoring for hypoglycemia with decreased PO intake - GI prophylaxis: Protonix IV - DVT prophylaxis: INR 2.1, will utilize heparin gtt later today
[2017-05-05] MEDS ORDERED: HEPARIN 25,000 UNIT/500ML D5W 500 ML IV PRN ×2 (09:00→14:00)
[2017-05-05] MEDS ORDERED: HEPARIN IV LOW DOSE NO BOLUS SCH (09:00)
[2017-05-05 09:06] LABS: CALCIUM 8.1 mg/dl (8.5-10.1); CREATININE 0.95 mg/dl (0.60-1.40); POTASSIUM 3.8 mmol/L (3.5-5.1)
[2017-05-05 09:09] LABS: PHOSPHORUS 2.2 mg/dl (2.5-4.9); TOTAL PROTEIN 6.7 gm/dl (6.4-8.2)
[2017-05-05] MEDS ORDERED: VANCOMYCIN INJ 1,250 MG in SODIUM CHLORIDE 0.9% 250ML 250 ML IV SCH (10:00)
--- NOTE | 2017-05-05 11:42 | Cardiology Consultation ---
Cardiology Consultation Date of Consultation: May 05, 2017. Requesting Physician: Dr. Lamb Reason for Consultation: Coronary artery disease, left ventricular thrombus Pt evaluation today including: conversation w/ patient, conversation w/ family , physical exam, lab review, review of studies, review of inpatient medication list History of Present Illness This is a 72-year-old gentleman who has a history of myocardial infarction with I believe urgent angioplasty of the LAD in 1998. I do not believe he has had invasive evaluation since then, he does have full motion abnormalities on echocardiography as well as the suggestion of an apical thrombus although his overall left ventricular function was not severely reduced and that was not seen on prior echocardiograms, he was however started on warfarin. A repeat echocardiogram done in May 2016 could not exclude an apical thrombus in the apex was severely hypokinetic. Overall left ventricular function was 40-45%. He also has a remote history of a CVA and he has peripheral vascular disease as well as mild carotid disease. He presented to the emergency room on May 04, 2017 having persistent abdominal discomfort for about 3 days. An ultrasound suggested acute cholecystitis with gallstones, he was therefore admitted with plans for laparoscopic cholecystectomy after withholding warfarin for several days. Today he is feeling well, he has not been having any chest discomfort, does not have heart failure symptoms and has no complaints. His abdominal discomfort has subsided substantially since admission. Past Medical/Surgical History Coronary artery disease Probable left ventricular thrombus Peripheral vascular disease Carotid disease Social History Smoking Status: Never Smoker History of Alcohol Use: No Review of Systems Constitutional: No fever, No weight loss, No weakness Respiratory: No cough, No wheezing, No shortness of breath, No dyspnea on exertion Cardiac: No chest pain, No orthopnea, No PND, No edema, No palpitations Abdomen: + see HPI, + pain, No nausea, No vomiting, No diarrhea, No GI bleeding Male : No urinary frequency, No nocturia more than once/night, No slowing stream, No sexual dysfunction Neurologic: No paralysis, No weakness, No numbness/tingling, No balance problems Heme: No abnormal bleeding/bruising, No clotting problems Endo: No fatigue Skin: No problem reported All Other Systems: Reviewed and Negative Allergies Coded Allergies: No Known Allergies (Unverified , 05/04/17) Medications Current Inpatient Medications Medications (Trade) Dose Ordered Sig/Yvan Route Start Time Stop Time Status Last Admin Dose Admin Sodium Chloride 1,000 ml @ 125 mls/hr Q8H IV 05/04/17 20:30 06/03/17 20:29 05/04/17 18:43 50 MLS/HR Acetaminophen (Tylenol Tab) 650 mg Q4H PRN PO 05/04/17 16:30 06/03/17 16:29 05/05/17 10:50 650 MG Al Hydrox/Mg Hydrox/Simethicone (Maalox Max Susp) 15 ml Q4H PRN PO 05/04/17 16:30 06/03/17 16:29 Magnesium Hydroxide (Milk Of Magnesia Susp) 30 ml Q12H PRN PO 05/04/17 16:30 06/03/17 16:29 Zolpidem Tartrate (Ambien Tab) 5 mg HSZ PRN PO 05/04/17 16:30 06/03/17 16:29 Ondansetron HCl (Zofran Inj) 4 mg Q6H PRN IV 05/04/17 16:30 06/03/17 16:29 Nitroglycerin (Nitrostat Tab) 0.4 mg UD PRN SL 05/04/17 16:30 06/03/17 16:29 Polyethylene (Miralax Powder Packet) 17 gm DAILY PRN PO 05/04/17 16:30 06/03/17 16:29 Glucose (Glucose 40% Gel) 15-30 GRAMS 15 GRAMS... UD PRN PO 05/04/17 16:30 06/03/17 16:29 Glucose (Glucose Chew Tab) 4-8 Tablets 4 Tabl... UD PRN PO 05/04/17 16:30 06/03/17 16:29 Dextrose (Dextrose 50% 50ML Syringe) 25-50ML OF 50% DW IV FOR... UD PRN IV 05/04/17 16:30 06/03/17 16:29 Glucagon (Glucagon Inj) 1 mg UD PRN SQ 05/04/17 16:30 06/03/17 16:29 Hydralazine HCl (HydrALAZINE INJ) 15 mg Q6H PRN IV. 05/04/17 16:30 06/03/17 16:29 Piperacillin Sod/ Tazobactam Sod 3.375 gm/Dextrose 115 ml @ 28.75 mls/ hr Q8@0000,0800,1600 IV 05/05/17 00:00 05/15/17 00:00 05/05/17 08:20 28.75 MLS/HR Miscellaneous Information (Consult) 1 ea UD PRN N/A 05/04/17 16:30 06/03/17 16:29 Lactobacillus Acidophilus (Lactinex Granules Pack) 1 gm TIDM PO 05/04/17 18:15 06/03/17 18:14 05/05/17 08:07 1 GM Miscellaneous Information (Consult) 1 ea UD PRN N/A 05/04/17 17:00 06/03/17 16:59 Atorvastatin Calcium (Lipitor Tab) 40 mg DAILY PO 05/05/17 09:00 06/04/17 08:59 05/05/17 08:07 40 MG Pantoprazole Sodium 40 mg/ Syringe 10 ml @ 5 mls/min DAILY@11 IV 05/05/17 11:00 05/08/17 11:01 Insulin Aspart (novoLOG ASPART) SLIDING SCALE If C... Q6 SC 05/05/17 06:00 06/04/17 05:59 05/05/17 05:57 2 UNITS Vancomycin HCl 1250 mg/Sodium Chloride 275 ml @ 125 mls/hr Q16H IV 05/05/17 10:00 05/14/17 17:59 05/05/17 09:38 125 MLS/HR Heparin Sodium/ Dextrose 500 ml @ 18 mls/hr Q24H PRN IV 05/05/17 14:00 06/04/17 08:59 Physical Exam Vital Signs Past 12 Hours Date Time Temp Pulse Resp B/P (MAP) Pulse Ox O2 Delivery O2 Flow Rate FiO2 05/05/17 08:00 Room Air 05/05/17 08:00 94 Room Air 05/05/17 07:40 37.2 114 20 133/80 (97) 91 Room Air 05/05/17 04:00 Room Air 05/05/17 03:57 37.6 103 22 127/77 (94) 94 Room Air 05/05/17 00:00 Room Air Constitutional: General Apperance: heathly-appearing Level of Distress: NAD Psychiatric: Mental Status: active & alert Head: normocephalic Eyes: EOM: EOMI ENMT: normal ENT inspection, hearing grossly normal Neck: supple, no masses Lungs: Respiratory effort: no dyspnea, good air movement Auscultation: breath sounds normal, no wheezing Cardiovascular: Heart Auscultation: RRR, no murmurs, no rubs, no gallops Peripheral Pulses: Bruits: none appreciated Abdomen: Bowel Sounds: normal Inspection & Palpation: soft, no masses Musculoskeletal: normal strength (5/5 throughout) Extremities: no edema Neurologic: Cranial Nerves: grossly intact Sensation: grossly intact Data Laboratory Results: Last 24 Hours Test 05/04/17 12:10 05/04/17 18:26 05/04/17 18:29 05/04/17 20:06 White Blood Count 14.27 K/uL Red Blood Count 4.60 M/uL Hemoglobin 14.6 g/dL Hematocrit 40.5 % Mean Corpuscular Volume 88.0 fL Mean Corpuscular Hemoglobin 31.7 pg Mean Corpuscular Hemoglobin Concent 36.0 g/dl Platelet Count 291 K/uL Mean Platelet Volume 9.1 fL Neutrophils (%) (Auto) 76.3 % Lymphocytes (%) (Auto) 9.5 % Monocytes (%) (Auto) 13.4 % Eosinophils (%) (Auto) 0.2 % Basophils (%) (Auto) 0.4 % Neutrophils # (Auto) 10.90 K/uL Lymphocytes # (Auto) 1.35 K/uL Monocytes # (Auto) 1.91 K/uL Eosinophils # (Auto) 0.03 K/uL Basophils # (Auto) 0.05 K/uL RDW Standard Deviation 41.7 fL RDW Coefficient of Variation 13.1 % Immature Granulocyte % (Auto) 0.2 % Immature Granulocyte # (Auto) 0.03 K/uL Prothrombin Time 19.0 SECONDS Prothromb Time International Ratio 1.8 Activated Partial Thromboplast Time 35.9 SECONDS Partial Thromboplastin Ratio 1.4 Sodium Level 131 mmol/L Potassium Level 4.2 mmol/L Chloride Level 97 mmol/L Carbon Dioxide Level 24 mmol/L Anion Gap 10.0 mmol/L Blood Urea Nitrogen 15 mg/dl Creatinine 1.21 mg/dl Est Creatinine Clear Calc Drug Dose 55.3 ml/min Estimated GFR () 67.9 Estimated GFR (Non- 58.6 BUN/Creatinine Ratio 12.0 Random Glucose 221 mg/dl Calcium Level 9.3 mg/dl Total Bilirubin 1.1 mg/dl Direct Bilirubin 0.3 mg/dl Aspartate Amino Transf (AST/SGOT) 18 U/L Alanine Aminotransferase (ALT/SGPT) 39 U/L Alkaline Phosphatase 67 U/L Troponin I < 0.015 ng/ml < 0.015 ng/ml Pro-B-Type Natriuretic Peptide 317 pg/ml Total Protein 8.0 gm/dl Albumin 3.9 gm/dl Lipase 137 U/L Bedside Glucose 205 mg/dl 197 mg/dl C-Reactive Protein 13.30 mg/dl Procalcitonin 0.11 ng/ml Test 05/05/17 05:53 05/05/17 07:27 Bedside Glucose 194 mg/dl White Blood Count 14.58 K/uL Red Blood Count 4.04 M/uL Hemoglobin 12.6 g/dL Hematocrit 35.1 % Mean Corpuscular Volume 86.9 fL Mean Corpuscular Hemoglobin 31.2 pg Mean Corpuscular Hemoglobin Concent 35.9 g/dl Platelet Count 270 K/uL Mean Platelet Volume 9.2 fL Neutrophils (%) (Auto) 77.2 % Lymphocytes (%) (Auto) 8.4 % Monocytes (%) (Auto) 13.6 % Eosinophils (%) (Auto) 0.2 % Basophils (%) (Auto) 0.3 % Neutrophils # (Auto) 11.25 K/uL Lymphocytes # (Auto) 1.23 K/uL Monocytes # (Auto) 1.99 K/uL Eosinophils # (Auto) 0.03 K/uL Basophils # (Auto) 0.04 K/uL RDW Standard Deviation 41.6 fL RDW Coefficient of Variation 12.9 % Immature Granulocyte % (Auto) 0.3 % Immature Granulocyte # (Auto) 0.04 K/uL Prothrombin Time 21.4 SECONDS Prothromb Time International Ratio 2.1 Sodium Level 131 mmol/L Potassium Level 3.8 mmol/L Chloride Level 101 mmol/L Carbon Dioxide Level 21 mmol/L Anion Gap 9.0 mmol/L Blood Urea Nitrogen 12 mg/dl Creatinine 0.95 mg/dl Est Creatinine Clear Calc Drug Dose 70.4 ml/min Estimated GFR () 91.0 Estimated GFR (Non- 78.5 BUN/Creatinine Ratio 12.8 Random Glucose 183 mg/dl Calcium Level 8.1 mg/dl Phosphorus Level 2.2 mg/dl Magnesium Level 1.5 mg/dl Total Bilirubin 1.3 mg/dl Aspartate Amino Transf (AST/SGOT) 14 U/L Alanine Aminotransferase (ALT/SGPT) 29 U/L Alkaline Phosphatase 57 U/L Total Protein 6.7 gm/dl Albumin 3.0 gm/dl Globulin 3.7 gm/dl Albumin/Globulin Ratio 0.8 EKG: Sinus rhythm, inferior and anterior myocardial infarctions, old Telemetry reviewed: Sinus rhythm, no significant arrhythmia Assessment & Plan 1. Coronary disease: He has a history of coronary disease although it has been stable for many years, he does not have exertional symptoms and he has been on respect to modification. At this point I would not look for ischemia, however I think it would be prudent to get an echocardiogram to make sure he has not developed worsening left ventricular function prior to undergoing anesthesia. That would not likely change our approach, but it would be helpful to know. We should be able to get that today. 2. Left ventricular thrombus: He has a possibility of left ventricular thrombus although it has not been proven conclusively. He has been on anticoagulation for a long time. I agree with withholding Coumadin for now, I do not think it is necessary to start heparin prior to surgery or immediately after surgery, his embolic risk should be very low. It may be safer to minimize the risk of bleeding and simply hold the warfarin during the perioperative period. 3. Cardiomyopathy: He had a mild cardiomyopathy but we have not looked at his left ventricular function for almost a year. This is most likely ischemic. I am going to repeat the echocardiogram to make sure it is not changed before surgery. He is not on beta blockade due to a history of bradycardia. Thank you for allowing me to participate in his care.
[2017-05-05] MEDS: PANTOprazole INJ 40 MG in SYRINGE 0 ML IV SCH (13:17)
[2017-05-05] MEDS: SODIUM CHLORIDE 0.9% 1000ML 1,000 ML IV SCH (13:18)
[2017-05-05 15:32] LABS: INR 1.5 (0.9-1.1)
--- NOTE | 2017-05-05 15:52 | Surgery Progress Note ---
Surgery Progress Note Date of Service May 05, 2017. Subjective + feeling well pt feels better, less RUQ pain, no nausea, no vomiting, Objective Vital Signs: Date Time Temp Pulse Resp B/P (MAP) Pulse Ox O2 Delivery O2 Flow Rate FiO2 05/05/17 15:18 Room Air 05/05/17 15:10 36.7 93 19 122/77 (92) 95 Room Air 05/05/17 12:30 Room Air 05/05/17 11:45 37.4 115 20 116/76 (89) 91 Room Air 05/05/17 08:00 Room Air 05/05/17 08:00 94 Room Air 05/05/17 07:40 37.2 114 20 133/80 (97) 91 Room Air 05/05/17 04:00 Room Air 05/05/17 03:57 37.6 103 22 127/77 (94) 94 Room Air 05/05/17 00:00 Room Air 05/04/17 23:07 37.7 112 18 98/63 (75) 94 Room Air 05/04/17 20:00 93 Room Air 05/04/17 18:33 93 Room Air 05/04/17 18:21 37.0 115 18 151/87 05/04/17 18:00 93 Room Air 05/04/17 18:00 93 Room Air 05/04/17 18:00 37.0 115 18 151/87 (108) 93 Room Air 05/04/17 17:03 107 16 137/88 95 Room Air 05/04/17 16:07 105 05/04/17 15:57 108 20 154/96 95 Room Air General Appearance: WD/WN, no apparent distress Head: normocephalic Neck: supple, no JVD Respiratory/Chest: chest non-tender, lungs clear Cardiovascular: no edema, no gallop, no JVD, + irregularly irregular Abdomen: normal bowel sounds, non tender, non distended, + tenderness (AT RUQ) Extremities: normal range of motion, non-tender, normal inspection Laboratory Results: Results Past 24 Hours Test 05/04/17 18:26 05/04/17 18:29 05/04/17 20:06 05/05/17 05:53 Range/Units Bedside Glucose 205 197 194 70-99 mg/dl Troponin I < 0.015 0-0.045 ng/ml C-Reactive Protein 13.30 0-0.29 mg/dl Procalcitonin 0.11 0-0.5 ng/ml Test 05/05/17 07:27 05/05/17 11:11 05/05/17 15:07 Range/Units White Blood Count 14.58 4.8-10.8 K/uL Red Blood Count 4.04 4.7-6.1 M/uL Hemoglobin 12.6 14.0-18.0 g/dL Hematocrit 35.1 42-52 % Mean Corpuscular Volume 86.9 80-100 fL Mean Corpuscular Hemoglobin 31.2 25-34 pg Mean Corpuscular Hemoglobin Concent 35.9 32-36 g/dl Platelet Count 270 130-400 K/uL Mean Platelet Volume 9.2 7.4-10.4 fL Neutrophils (%) (Auto) 77.2 % Lymphocytes (%) (Auto) 8.4 % Monocytes (%) (Auto) 13.6 % Eosinophils (%) (Auto) 0.2 % Basophils (%) (Auto) 0.3 % Neutrophils # (Auto) 11.25 1.4-6.5 K/uL Lymphocytes # (Auto) 1.23 1.2-3.4 K/uL Monocytes # (Auto) 1.99 0.11-0.59 K/uL Eosinophils # (Auto) 0.03 0-0.5 K/uL Basophils # (Auto) 0.04 0-0.2 K/uL RDW Standard Deviation 41.6 36.4-46.3 fL RDW Coefficient of Variation 12.9 11.5-14.5 % Immature Granulocyte % (Auto) 0.3 % Immature Granulocyte # (Auto) 0.04 0.00-0.02 K/uL Prothrombin Time 21.4 16.1 9.0-12.0 SECONDS Prothromb Time International Ratio 2.1 1.5 0.9-1.1 Sodium Level 131 136-145 mmol/L Potassium Level 3.8 3.5-5.1 mmol/L Chloride Level 101 98-107 mmol/L Carbon Dioxide Level 21 21-32 mmol/L Anion Gap 9.0 3-11 mmol/L Blood Urea Nitrogen 12 7-18 mg/dl Creatinine 0.95 0.60-1.40 mg/dl Est Creatinine Clear Calc Drug Dose 70.4 ml/min Estimated GFR () 91.0 Estimated GFR (Non- 78.5 BUN/Creatinine Ratio 12.8 10-20 Random Glucose 183 70-99 mg/dl Calcium Level 8.1 8.5-10.1 mg/dl Phosphorus Level 2.2 2.5-4.9 mg/dl Magnesium Level 1.5 1.8-2.4 mg/dl Total Bilirubin 1.3 0.2-1 mg/dl Aspartate Amino Transf (AST/SGOT) 14 15-37 U/L Alanine Aminotransferase (ALT/SGPT) 29 12-78 U/L Alkaline Phosphatase 57 45-117 U/L Total Protein 6.7 6.4-8.2 gm/dl Albumin 3.0 3.4-5.0 gm/dl Globulin 3.7 2.5-4.0 gm/dl Albumin/Globulin Ratio 0.8 0.9-2 Bedside Glucose 199 70-99 mg/dl Microbiology Results 05/04/17 Blood Culture, Received Pending 05/04/17 Blood Culture, Received Pending Assessment & Plan reimbursement director saw pt and 2-D echo done, IMP: acute cholecystitis, cholelithiasis plan, pt and his want to do cholecystectomy, pt will have laparoscopic cholecystectomy, possible open or cholangiogram tomorrow, D/W benefits, risks and alternatives of the procedure, the risks - infection, bleeding, injury CBD, bowel, may need ERCP, IA, DVT, stroke, , pt and his understood, they agree with the surgery. I answered all questions, NPO after MN, Hold heparin after MN
--- NOTE | 2017-05-05 21:25 | ECHOCARDIOGRAM REPORT ---
*NOTICE TO RECEIVING LIBERTARIAN AGENCY This information is strictly Confidential and protected under [place] law. [place] law prohibits you from making any further disclosure of this information unless further disclosure is expressly permitted by the written consent of the person to whom it pertains or is authorized by law. A general authorization for the release of medical or other information is not sufficient for this purpose. Hospital accepts no responsibility if the information is made available to any other person, INCLUDING THE PATIENT. Interpretation Summary * Name: ANGIE SHABAZZ Study Date: 05/05/2017 12:05 PM BP: 133/80 mmHg * Patient Location: .2T\S\E217\S\1 HR: 114 * : 1945 (M/d/yyyy) Gender: Male Height: 70 in * Age: 72 yrs Ethnicity: CA Weight: 177 lb * Ordering Physician: Mitchell Nowak * Referring Physician: Self, Referred * Performed By: Albina Aceves RDCS * * Reason For Study: Ischemic cardiomyopathy * BSA: 2.0 m2 * -- Conclusions -- * 1. Normal LV size. Normal LV wall thickness. * 2. LVEF 55-60 %. Inferolateral severe hypokinesis. Hypokinetic to akinetic apex * 3. Normal RV size and function. * 4. Aortic valve sclerosis without stenosis. * 5. Normal estimated PA and RA pressures. * 6. No prior studies for comparison. Procedure Details * A complete two-dimensional transthoracic echocardiogram was performed (2D, M-mode, Doppler and color flow Doppler). * A contrast injection of Definity was performed to improve assessment of LV function. * Contrast was injected into an intravenous site in the right arm. * One vial of Definity ultrasound contrast was diluted in normal saline to a total volume of 10 ml. A total of '2' ml of solution was administered during imaging. * Lot # [id number] of Definity utilized for procedure. * Expiration date APR 15. * The attending nurse who injected the contrast agent was Geneva Bailey RN. Left Ventricle * The left ventricle is grossly normal size. * There is normal left ventricular wall thickness. * Ejection Fraction = 55-60%. * Inferolateral severe hypokinesis. Hypokinetic to akinetic apex Right Ventricle * The right ventricle is grossly normal size. * The right ventricular systolic function is normal as assessed by tricuspid annular plane systolic excursion (TAPSE) (normal >1.5 cm). Atria * The left atrial size is normal. * Right atrial size is normal. * No ASD detected; PFO is not assessed. Mitral Valve * The mitral valve is grossly normal. * There is no mitral valve stenosis. * Significant mitral regurgitation is absent. Tricuspid Valve * There is no tricuspid stenosis. * There is trace tricuspid regurgitation. Aortic Valve * Aortic valve sclerosis moderate, without significant aortic valvular stenosis. * No hemodynamically significant valvular aortic stenosis. * There is no significant aortic regurgitation. Pulmonic Valve * The pulmonary valve is inadequately visualized, but the Doppler data is adequate for interpretation. * Pulmonic stenosis is absent. * There is no significant pulmonary regurgitation. Great Vessels * The aortic root and proximal ascending aorta are normal sized. Pericardium/Pleural * There is no pericardial effusion. Great Vessels * Normal inferior vena cava size and collapsability with sniff indicates a normal right atrial pressure of 3 mmHg * There is no evidence of pulmonary hypertension. The PA systolic pressure is less than 36 mmHg. MMode 2D Measurements and Calculations IVSd 1.0 cm LVIDd 3.3 cm LVIDs 2.2 cm LVPWd 0.96 cm IVS/LVPW 1.1 FS 32.3 % EDV(Teich) 44.0 ml ESV(Teich) 16.8 ml EF(Teich) 61.9 % EDV(cubed) 35.8 ml ESV(cubed) 11.1 ml EF(cubed) 69.0 % LV mass(C)d 94.0 grams LV mass(C)dI 47.4 grams/m\S\2 SV(Teich) 27.2 ml SI(Teich) 13.7 ml/m\S\2 SV(cubed) 24.7 ml SI(cubed) 12.5 ml/m\S\2 Ao root diam 3.5 cm Ao root area 9.4 cm\S\2 ACS 1.0 cm LA dimension 2.5 cm asc Aorta Diam 2.5 cm LA/Ao 0.71 LVOT diam 2.0 cm LVOT area 3.1 cm\S\2 LVAd ap4 28.3 cm\S\2 LVLd ap4 7.8 cm EDV(MOD-sp4) 82.3 ml EDV(sp4-el) 87.8 ml LVAs ap4 18.1 cm\S\2 LVLs ap4 7.5 cm ESV(MOD-sp4) 35.2 ml ESV(sp4-el) 37.1 ml EF(MOD-sp4) 57.2 % EF(sp4-el) 57.7 % LVAd ap2 22.4 cm\S\2 LVLd ap2 8.0 cm EDV(MOD-sp2) 50.7 ml EDV(sp2-el) 53.1 ml LVAs ap2 14.1 cm\S\2 LVLs ap2 7.5 cm ESV(MOD-sp2) 20.7 ml ESV(sp2-el) 22.3 ml EF(MOD-sp2) 59.1 % EF(sp2-el) 58.1 % LVLd %diff 3.1 % EDV(MOD-bp) 64.5 ml LVLs %diff 0.06 % ESV(MOD-bp) 27.1 ml EF(MOD-bp) 57.9 % SV(MOD-sp4) 47.0 ml SI(MOD-sp4) 23.7 ml/m\S\2 SV(MOD-sp2) 30.0 ml SI(MOD-sp2) 15.1 ml/m\S\2 SV(MOD-bp) 37.4 ml SI(MOD-bp) 18.9 ml/m\S\2 SV(sp4-el) 50.7 ml SI(sp4-el) 25.6 ml/m\S\2 SV(sp2-el) 30.8 ml SI(sp2-el) 15.6 ml/m\S\2 Doppler Measurements and Calculations MV E max julia 54.8 cm/sec MV A max julia 85.9 cm/sec MV E/A 0.64 Ao V2 max 118.7 cm/sec Ao max PG 5.6 mmHg Ao max PG (full) 3.3 mmHg DOUGIE(V,A) 2.0 cm\S\2 DOUGIE(V,D) 2.0 cm\S\2 LV V1 max PG 2.3 mmHg LV V1 max 75.7 cm/sec PA V2 max 101.8 cm/sec PA max PG 4.1 mmHg PA acc slope 775.5 cm/sec\S\2 PA acc time 0.10 sec PA pr(Accel) 36.2 mmHg
[2017-05-05] MEDS ORDERED: NURSING VERBAL MED ORDER ONE (23:45)
[2017-05-06] VITALS (7 sets, daily range): BP systolic 107–131; BP diastolic 67–82; PULSE 85–92; TEMP 36.6–37.6; O2SAT 90–95
[2017-05-06] MEDS ORDERED: [UNRECOGNIZED DRUG - REMARK] ONE
[2017-05-06] MEDS: SODIUM CHLORIDE 0.9% 1000ML 1,000 ML IV SCH ×4 (00:09→20:31)
[2017-05-06] MEDS: PIPERACILL/TAZOBAC IV 3.375 GM in DEXTROSE 5% 100ML 100 ML IV SCH ×3 (00:09→15:22)
[2017-05-06] MEDS: INSULIN ASPART 100 UNITS/ML 3 ML PEN SC SCH ×4 (05:29→17:52)
[2017-05-06 06:52] LABS: PTT PATIENT 33.1 SECONDS (21.0-31.0)
[2017-05-06] MEDS ORDERED: FENTANYL CITRATE INJ 50 MCG/1 ML 2 ML VIAL ONE ×3 (06:58→09:43)
[2017-05-06] MEDS ORDERED: LIDOCAINE HCL 2% JELLY 30 ML TUBE EXT ONE (07:04)
--- NOTE | 2017-05-06 07:11 | History & Physical Bridge Note ---
H&P Re-Evaluation Bridge Note: I have examined the patient, reviewed the History & Physical and in the interval since the performance of the History & Physical I have noted the following changes of clinical significance: No changes noted
[2017-05-06] MEDS ORDERED: CEFAZOLIN SOD 2000MG/15 ML IV PUSH IV ONE (07:14)
[2017-05-06] MEDS ORDERED: FENTANYL CITRATE INJ 50 MCG/1 ML 2 ML VIAL IV PRN (07:15)
[2017-05-06] MEDS ORDERED: ONDANSETRON INJ 2 MG/ML 2 ML VIAL IV PRN (07:15)
[2017-05-06] MEDS ORDERED: EpHEDrine SULFATE INJ 50 MG/ML AMP IV PRN (07:15)
[2017-05-06] MEDS ORDERED: ATROPINE SULFATE 0.1 MG/ML 5ML SYR IV PRN (07:15)
[2017-05-06 07:35] LABS: HEMOGLOBIN A1C 7.4 % (4.5-5.6)
[2017-05-06] MEDS ORDERED: ROCURONIUM BROMIDE 10 MG/ML 5 ML VIAL IV ONE ×3 (07:38→09:30)
[2017-05-06] MEDS ORDERED: ONDANSETRON INJ 2 MG/ML 2 ML VIAL ONE (07:38)
[2017-05-06] MEDS ORDERED: PHENYLEPHRINE 100MCG/ML 5ML SYR ONE (07:38)
[2017-05-06] MEDS ORDERED: PROPOFOL IV EMULSION 10 MG/ML 20 ML VIAL IV ONE (07:38)
[2017-05-06] MEDS ORDERED: GLYCOPYRROLATE INJ 0.2 MG/ML VIAL ONE (07:38)
[2017-05-06] MEDS ORDERED: LIDOCAINE HCL 2% 2 ML VIAL (20MG/ML) ONE (07:38)
[2017-05-06] MEDS ORDERED: NEOSTIGMINE METHYLSULFATE 5 MG/5 ML SYR ONE (07:38)
[2017-05-06] MEDS ORDERED: ESMOLOL HCL 10 MG/ML 10 ML VIAL ONE (07:53)
[2017-05-06] MEDS: BACITRACIN OINT 15 GM TUBE ONE ×2 (08:39→10:05)
[2017-05-06] MEDS: ATORVASTATIN 20 MG TAB PO SCH (08:39)
[2017-05-06] MEDS: LIDOCAINE HCL 1% 20 ML VIAL ONE ×2 (08:39→10:06)
[2017-05-06] MEDS: BUPIVACAINE 0.5 % 5 MG/1 ML MPF 30ML VIAL ONE ×2 (08:39→10:06)
[2017-05-06] MEDS: LACTOBACILLUS ACIDOPHILUS 1 GM PACK PO SCH ×3 (08:39→16:45)
[2017-05-06] MEDS ORDERED: METOPROLOL TARTRATE 1 MG/ML VIAL ONE (09:30)
[2017-05-06] MEDS ORDERED: BACITRACIN OP OINT PER APPLICATION CHARGE TOP ONE (10:03)
--- NOTE | 2017-05-06 10:10 | [facility] Post Operative Brief Note ---
Immediate Operative Summary Operative Date May 06, 2017. Pre-Operative Diagnosis Acute Cholecystitis, CHOLELITHIASIS Post-Operative Diagnosis Acute Cholecystitis, cholelithiasis Procedure(s) Performed Laparoscopic Cholecystectomy Surgeon Dr. Maxi Hardin Fine Wire Drawer Surgeon(s) Lianna Little PA-C Estimated Blood Loss 30ML Findings Consistent with Post-Op Diagnosis significant inflammation on gallbladder, wall edema Fluids (cc crystalloids) 1200ml Specimens Permanent Solution: A.) Gallbladder and Contents Drains CARMENCITA X1 Anesthesia Type General Complication(s) none Disposition Accompanied Pt To Recover: yes Disposition: Recovery Room / PACU
--- NOTE | 2017-05-06 11:09 | OPERATIVE REPORT ---
DATE OF OPERATION: 05/06/2017 PREOPERATIVE DIAGNOSIS: Acute cholecystitis, cholelithiasis. POSTOPERATIVE DIAGNOSIS: Same. OPERATION: Laparoscopic cholecystectomy. SURGEON: Maxi Hardin MD. ALMOND BLANCHER HAND: Lianna Little PA-C. ANESTHESIA: General. ESTIMATED BLOOD LOSS: About 30 mL. FINDINGS: Significant inflammation of the gallbladder, the gallbladder wall is with significant edema and thickening. COMPLICATIONS: None. IV FLUIDS: 1200 mL. INDICATIONS FOR THE PROCEDURE: This is a 72-year-old gentleman who presented with right upper quadrant pain and the patient had a CT scan and ultrasound showing acute cholecystitis with gallstone and the patient was admitted to hospital for comfort the pain, IV fluid, IV antibiotic and to hold Coumadin for 2 days. The patient will be required to do laparoscopic cholecystectomy, possible open, possible cholangiogram. I did talk to the patient about the benefit and risk, alternate procedure. I indicated the risks may include but not limited such as bleeding, infection, injury to common bile duct, injury to the bile and he may need ERCP, myocardial infarction, DVT, stroke or even . The patient understands. The patient and his agreed to proceed with procedure. The patient signed informed consent and I answered all questions. DETAILS OF PROCEDURE: We brought the patient to the OR, put the patient in the supine position. The patient received SCD on bilateral legs to prevent DVT. Also, patient received 2 grams of Ancef IV for prophylactic antibiotic. The patient received general anesthesia without difficulty. The abdomen was prepped and draped in routine sterile fashion. After time out, I injected the local anesthesia by using 1% lidocaine mixed with 0.5% Marcaine just above umbilicus. Then I made a small incision just above umbilicus, opened fascia, opened peritoneum and under direct vision put a Emily trocar in, connected to CO2 to create pneumoperitoneum. Flow rate at 6 liter per minute. Pressure not more than 14 mmHg. Once we got a nice pneumoperitoneum, we put a 10 mm camera in, looked around the abdomen and showed normal finding on the stomach, small bowel, large bowel; however, the liver showed early cirrhosis. The gallbladder showing significant inflammation, gallbladder wall thickening, edema, omental adhesions to the gallbladder. Then we put the two 5 mm trocar on the right upper quadrant and put another 11 trocar on the epigastric area. Once all trocars in, I peeled down the omental adhesion to the gallbladder. The gallbladder again showing significant inflammation, gallbladder wall thickening and edema. We had to use a large needle to decompress the gallbladder, suctioning the gallbladder fluid. Once we decompressed the gallbladder, we were able to hold the gallbladder using a grasper and then we put another grasper to hold the pouch of gallbladder, put latter to try to expose the triangle of Calot however, the cystic duct was very difficult to explore and even we put a 10 mm clamp, but still was not easy to dissect. At this moment, we used the top-down technique to take a piece of adhesive gallbladder. We suctioned all of the gallbladder, removed the gallstone under direct vision and we dissected the gallbladder near the cystic duct. We closed the cystic duct by Endoloop x2. Then we removed all of the gallbladder, rechecked no active bleeding, no bile leak. Then we removed all adhesive gallbladder through the catcher bag. Then we reinserted Emily trocar and connected to CO2 to create pneumoperitoneum. Again looked around the abdomen, no bile leak and no active bleeding from the liver bed. Then we decided to put a 10 mm CARMENCITA drainage in, we saw significant inflammation of the gallbladder. Then we removed all trocar under direct vision. Pneumoperitoneum was released. Closed umbilical incision, fascial layer using #1 Vicryl [id number] x2, closed subcutaneous layer by using 2-0 Vicryl, closed skin by using 4-0 Vicryl, closed the epigastric 11 port with #1 Vicryl [id number] x2 for fascial layer, closed subcutaneous layer by using 2-0 Vicryl, closed skin by using 4-0 Vicryl and closed another two 5 mm trocar site skin only by using 4-0 Vicryl. We put the dressing on. The patient tolerated the procedure well. All instrument, needle and sponge count correct x2 at the end of case. The patient transferred to recovery room in stable condition. After procedure, I did talk to the patient's about the OR finding and procedure we did, she understands. I attest to the content of the Intraoperative Record and any orders documented therein. Any exceptions are noted below. SAVAGE
--- NOTE | 2017-05-06 11:12 | Anesthesiology Progress Note ---
Anesthesia Post Op Note Date & Time May 06, 2017 at 11:12 Vital Signs Pain Intensity: 0 Vital Signs Past 12 Hours Date Time Temp Pulse Resp B/P (MAP) Pulse Ox O2 Delivery O2 Flow Rate FiO2 05/06/17 11:06 37 119/75 05/06/17 11:05 98 20 05/06/17 11:05 98 20 93 05/06/17 11:01 122/78 05/06/17 11:00 94 17 05/06/17 11:00 94 17 93 05/06/17 10:56 112/69 05/06/17 10:56 Nasal Cannula 3 05/06/17 10:55 95 16 05/06/17 10:55 95 16 97 05/06/17 10:51 129/78 05/06/17 10:50 94 17 97 05/06/17 10:50 94 17 05/06/17 10:46 128/73 05/06/17 10:45 94 17 05/06/17 10:45 94 17 97 05/06/17 10:41 131/80 05/06/17 10:40 100 21 97 05/06/17 10:40 100 21 05/06/17 10:36 130/84 05/06/17 10:35 99 17 97 05/06/17 10:35 99 17 05/06/17 10:31 123/88 05/06/17 10:30 99 18 97 05/06/17 10:30 99 18 05/06/17 10:28 128/80 05/06/17 10:20 37.2 100 17 131/86 96 Oxymask 10 05/06/17 04:00 Room Air 05/06/17 03:26 37.0 88 20 107/67 (80) 93 Room Air 05/05/17 23:59 Room Air Notes Mental Status: alert / awake / arousable, participated in evaluation Pt Amnestic to Procedure: Yes Nausea / Vomiting: adequately controlled Pain: adequately controlled Airway Patency, RR, SpO2: stable & adequate BP & HR: stable & adequate Hydration State: stable & adequate Anesthetic Complications: no major complications apparent
[2017-05-06] MEDS: PANTOprazole INJ 40 MG in SYRINGE 0 ML IV SCH (11:33)
[2017-05-06] MEDS ORDERED: NURSING VERBAL MED ORDER ONE (12:00)
[2017-05-06] MEDS ORDERED: MoRPHine SULFATE 2 MG/ML CARP IV PRN ×2 (15:15)
[2017-05-06] MEDS ORDERED: OXYCODONE/ACETAMINOPHEN 5-325 TAB PO PRN ×2 (15:15)
[2017-05-06] MEDS ORDERED: MoRPHine SULFATE 4 MG/ML 1 ML CARP\\VIAL IV PRN (15:15)
[2017-05-06] MEDS ORDERED: WARFARIN SOD 10 MG TAB PO ONE (16:30)
--- NOTE | 2017-05-06 16:33 | Progress Note ---
Subjective Date of Service: May 06, 2017. Subjective Pt evaluation today including: conversation w/ patient, physical exam Patient had surgery today. Patient reports mild pain near area of surgical incision Patient also had pain over his first great toe which began this afternoon. Pain is moderate, sharp, non radiating, constant. ROS is below Problem List Medical Problems: (1) Acute cholecystitis Status: Acute Review of Systems Constitutional: No fever, No chills Eyes: No worsening of vision ENT: No hearing loss Respiratory: No cough Cardiac: No chest pain Abdomen: No pain Neurologic: No memory loss Psychiatric: No depression symptoms Heme: No abnormal bleeding/bruising All Other Systems: Reviewed and Negative Medications Current Inpatient Medications Medications (Trade) Dose Ordered Sig/Yvan Route Start Time Stop Time Status Last Admin Dose Admin Sodium Chloride 1,000 ml @ 125 mls/hr Q8H IV 05/04/17 20:30 06/03/17 20:29 05/07/17 03:40 125 MLS/HR Acetaminophen (Tylenol Tab) 650 mg Q4H PRN PO 05/04/17 16:30 06/03/17 16:29 05/05/17 10:50 650 MG Al Hydrox/Mg Hydrox/Simethicone (Maalox Max Susp) 15 ml Q4H PRN PO 05/04/17 16:30 06/03/17 16:29 Magnesium Hydroxide (Milk Of Magnesia Susp) 30 ml Q12H PRN PO 05/04/17 16:30 06/03/17 16:29 Zolpidem Tartrate (Ambien Tab) 5 mg HSZ PRN PO 05/04/17 16:30 06/03/17 16:29 Ondansetron HCl (Zofran Inj) 4 mg Q6H PRN IV 05/04/17 16:30 06/03/17 16:29 Nitroglycerin (Nitrostat Tab) 0.4 mg UD PRN SL 05/04/17 16:30 06/03/17 16:29 Polyethylene (Miralax Powder Packet) 17 gm DAILY PRN PO 05/04/17 16:30 06/03/17 16:29 Glucose (Glucose 40% Gel) 15-30 GRAMS 15 GRAMS... UD PRN PO 05/04/17 16:30 06/03/17 16:29 Glucose (Glucose Chew Tab) 4-8 Tablets 4 Tabl... UD PRN PO 05/04/17 16:30 06/03/17 16:29 Dextrose (Dextrose 50% 50ML Syringe) 25-50ML OF 50% DW IV FOR... UD PRN IV 05/04/17 16:30 06/03/17 16:29 Glucagon (Glucagon Inj) 1 mg UD PRN SQ 05/04/17 16:30 06/03/17 16:29 Hydralazine HCl (HydrALAZINE INJ) 15 mg Q6H PRN IV. 05/04/17 16:30 06/03/17 16:29 Piperacillin Sod/ Tazobactam Sod 3.375 gm/Dextrose 115 ml @ 28.75 mls/ hr Q8@0000,0800,1600 IV 05/05/17 00:00 05/15/17 00:00 05/07/17 07:55 28.75 MLS/HR Miscellaneous Information (Consult) 1 ea UD PRN N/A 05/04/17 16:30 06/03/17 16:29 Lactobacillus Acidophilus (Lactinex Granules Pack) 1 gm TIDM PO 05/04/17 18:15 06/03/17 18:14 05/07/17 07:54 1 GM Atorvastatin Calcium (Lipitor Tab) 40 mg DAILY PO 05/05/17 09:00 06/04/17 08:59 05/07/17 08:49 40 MG Pantoprazole Sodium 40 mg/ Syringe 10 ml @ 5 mls/min DAILY@11 IV 05/05/17 11:00 05/08/17 11:01 05/06/17 11:33 5 MLS/MIN Insulin Aspart (novoLOG ASPART) SLIDING SCALE If C... Q6 SC 05/05/17 06:00 06/04/17 05:59 05/07/17 06:07 7 UNITS Oxycodone/ Acetaminophen (Percocet 5-325mg Tab) 1 tab Q4H PRN PO 05/06/17 15:15 05/20/17 15:14 05/07/17 00:19 1 TAB Oxycodone/ Acetaminophen (Percocet 5-325mg Tab) 2 tab Q4H PRN PO 05/06/17 15:15 05/20/17 15:14 Morphine Sulfate (MoRPHine SULFATE INJ) 1 mg Q1H PRN IV 05/06/17 15:15 05/20/17 15:14 Morphine Sulfate (MoRPHine SULFATE INJ) 2 mg Q1H PRN IV 05/06/17 15:15 05/20/17 15:14 Morphine Sulfate (MoRPHine SULFATE INJ) 4 mg Q1H PRN IV 05/06/17 15:15 05/20/17 15:14 Objective Vital Signs Date Time Temp Pulse Resp B/P (MAP) Pulse Ox O2 Delivery O2 Flow Rate FiO2 05/06/17 15:36 36.6 89 20 127/81 (96) 95 Nasal Cannula 2.0 05/06/17 12:16 85 18 129/82 (98) 93 Nasal Cannula 4.0 05/06/17 12:03 Nasal Cannula 4.0 05/06/17 11:45 36.6 89 18 130/78 (95) 90 3.0 05/06/17 11:30 36.6 90 18 131/81 (98) 91 3.0 05/06/17 11:30 Nasal Cannula 4.0 05/06/17 11:22 36.6 91 18 127/78 (94) 92 4.0 05/06/17 11:06 37 119/75 05/06/17 11:05 98 20 05/06/17 11:05 98 20 93 05/06/17 11:01 122/78 05/06/17 11:00 94 17 05/06/17 11:00 94 17 93 05/06/17 10:56 112/69 05/06/17 10:56 Nasal Cannula 3 05/06/17 10:55 95 16 05/06/17 10:55 95 16 97 05/06/17 10:51 129/78 05/06/17 10:50 94 17 97 05/06/17 10:50 94 17 05/06/17 10:46 128/73 05/06/17 10:45 94 17 05/06/17 10:45 94 17 97 05/06/17 10:41 131/80 05/06/17 10:40 100 21 97 05/06/17 10:40 100 21 05/06/17 10:36 130/84 05/06/17 10:35 99 17 97 05/06/17 10:35 99 17 05/06/17 10:31 123/88 05/06/17 10:30 99 18 97 3/12/18 10:30 99 18 05/06/17 10:28 128/80 05/06/17 10:20 37.2 100 17 131/86 96 Oxymask 10 05/06/17 04:00 Room Air 05/06/17 03:26 37.0 88 20 107/67 (80) 93 Room Air 05/05/17 23:59 Room Air 05/05/17 23:11 36.8 93 20 130/75 (93) 94 Room Air 05/05/17 20:00 Room Air 05/05/17 19:19 37.2 85 19 124/72 (89) 94 Room Air Physical Exam Comments: General Appearance: WD/WN, no apparent distress Eyes: normal inspection, EOMI, sclerae normal ENT: normal ENT inspection, hearing grossly normal, pharynx normal Neck: supple, no adenopathy, no JVD, trachea midline Respiratory/Chest: chest non-tender, lungs clear, normal breath sounds, no respiratory distress, no accessory muscle use Cardiovascular: no edema, no gallop, no JVD, no murmur, normal rate Abdomen: normal bowel sounds, soft, no organomegaly, + tenderness (epigastric, RUQ) Extremities: normal range of motion, non-tender, normal inspection, no pedal edema, no calf tenderness, pelvis stable. right toe has redness over first MTP Neurologic/Psychiatric: crm solution architect II-XII nml as tested, no motor/sensory deficits, alert, normal mood/affect, oriented x 3 Skin: normal color, warm/dry, no rash Lymphatic: no adenopathy Laboratory Results Last 24 Hours Test 05/05/17 20:02 05/05/17 20:34 05/06/17 00:00 05/06/17 05:11 Bedside Glucose 188 mg/dl 154 mg/dl 145 mg/dl Activated Partial Thromboplast Time 57.0 SECONDS Partial Thromboplastin Ratio 2.2 Test 05/06/17 06:04 05/06/17 10:30 05/06/17 11:41 Activated Partial Thromboplast Time 33.1 SECONDS Partial Thromboplastin Ratio 1.3 Bedside Glucose 206 mg/dl 202 mg/dl Assessment and Plan 72 years old man with PMHx HTN, Dyslipidemia, DMII, CVA, left ventricular thrombus on chronic AC by coumadin and Hx of bradycardia on B sandro. Presented with 2 days history of abdominal epigastric and right upper quadrant pain suggestive of acute cholecystitis. - Acute cholecystitis with sepsis, no evidence of organ failure or shock, POA S/P cholecystectomy today will recheck WBC in AM continue Zosyn, - H/o atrial thrombus, anticoagulated on Coumadin Low risk of embolic event. initially plan to restart heparin. But after reviewing risk of embolic event. Will hold heparin. will continue coumadin. INR is subtherapeutic - HTN: normally on Quinapril, holding given low normal BP and infection, BP stable - Dyslipidemia: Lipitor -Gout on first MTP on right foot. will monitor today. if continues will start steroid. - DM type II: hold Metformin, use Novolog SS, monitoring for hypoglycemia with decreased PO intake - GI prophylaxis: Protonix IV - DVT prophylaxis: coumadin Continued [facility] stay due to: multiple IV medications needed Discharge planning: uncertain
[2017-05-06] MEDS ORDERED: VANCOMYCIN TROUGH ONE (17:30)
[2017-05-06 18:09] LABS: PTT PATIENT 32.4 SECONDS (21.0-31.0)
[2017-05-07] VITALS (7 sets, daily range): BP systolic 112–128; BP diastolic 69–81; PULSE 90–108; TEMP 36.5–39.4; O2SAT 90–96
[2017-05-07] MEDS: PIPERACILL/TAZOBAC IV 3.375 GM in DEXTROSE 5% 100ML 100 ML IV SCH ×4 (00:18→23:40)
[2017-05-07] MEDS: INSULIN ASPART 100 UNITS/ML 3 ML PEN SC SCH ×5 (00:21→21:00)
[2017-05-07] MEDS: SODIUM CHLORIDE 0.9% 1000ML 1,000 ML IV SCH ×2 (03:40→20:14)
[2017-05-07] MEDS ORDERED: CEFAZOLIN SOD 2000MG/15 ML IV PUSH IV ONE (06:00)
[2017-05-07 06:16] LABS: BASO % 0.1 %; BASO ABS # 0.01 K/uL (0-0.2); EOS % 0.2 %; EOS ABS # 0.02 K/uL (0-0.5); HEMATOCRIT 29.4 % (42-52); HEMOGLOBIN 10.3 g/dL (14.0-18.0); IG# 0.04 K/uL (0.00-0.02); LYMPH % 4.1 %; LYMPH ABS # 0.48 K/uL (1.2-3.4); MEAN CELL VOLUME 88.6 fL (80-100); MEAN PLATELET VOLUME 9.3 fL (7.4-10.4); MONO % 11.1 %; MONO ABS # 1.29 K/uL (0.11-0.59); NEUT % 84.2 %; PLATELET COUNT 264 K/uL (130-400); RED CELL DISTRIBUTION WIDTH CV 12.9 % (11.5-14.5); RED CELL DISTRIBUTION WIDTH SD 41.9 fL (36.4-46.3); WHITE BLOOD COUNT 11.64 K/uL (4.8-10.8)
[2017-05-07 06:18] LABS: INR 1.1 (0.9-1.1)
[2017-05-07 06:53] LABS: ALBUMIN 2.4 gm/dl (3.4-5.0); CALCIUM 7.4 mg/dl (8.5-10.1); CREATININE 0.97 mg/dl (0.60-1.40); POTASSIUM 3.6 mmol/L (3.5-5.1)
--- NOTE | 2017-05-07 07:51 | Anesthesiology Progress Note ---
Anesthesia Post Op Note Date & Time May 07, 2017 at 07:50 Vital Signs Pain Intensity: 4 Vital Signs Past 12 Hours Date Time Temp Pulse Resp B/P (MAP) Pulse Ox O2 Delivery O2 Flow Rate FiO2 05/07/17 04:15 Nasal Cannula 4.0 05/07/17 03:50 37.2 96 22 124/75 (91) 92 Nasal Cannula 4.0 05/07/17 00:09 39.4 108 22 122/69 (86) 92 Nasal Cannula 2.0 05/07/17 00:01 Nasal Cannula 2.0 05/06/17 20:21 37.6 92 24 130/77 (94) 94 Nasal Cannula 2.0 Notes Mental Status: alert / awake / arousable Pt Amnestic to Procedure: Yes Nausea / Vomiting: adequately controlled, improving with treatment Airway Patency, RR, SpO2: stable & adequate BP & HR: stable & adequate Hydration State: stable & adequate Anesthetic Complications: no major complications apparent Anesthetic Complications: pt c/o sore throat; Educated pt on using ice chips to help with pain and that pain should subside over the next day or two.
[2017-05-07] MEDS: LACTOBACILLUS ACIDOPHILUS 1 GM PACK PO SCH ×3 (07:54→16:06)
[2017-05-07] MEDS: ATORVASTATIN 20 MG TAB PO SCH (08:49)
--- NOTE | 2017-05-07 09:19 | Cardiology Follow-Up ---
Subjective Date of Service: May 07, 2017. Pt evaluation today including: conversation w/ patient, conversation w/ family , physical exam, lab review, review of studies, review of inpatient medication list History of Present Illness This is a 72-year-old gentleman who has a history of myocardial infarction with I believe urgent angioplasty of the LAD in 1998. I do not believe he has had invasive evaluation since then, he does have full motion abnormalities on echocardiography as well as the suggestion of an apical thrombus although his overall left ventricular function was not severely reduced and that was not seen on prior echocardiograms, he was however started on warfarin. A repeat echocardiogram done in May 2016 could not exclude an apical thrombus in the apex was severely hypokinetic. Overall left ventricular function was 40-45%. He also has a remote history of a CVA and he has peripheral vascular disease as well as mild carotid disease. He presented to the emergency room on May 04, 2017 having persistent abdominal discomfort for about 3 days. An ultrasound suggested acute cholecystitis with gallstones, he was therefore admitted with plans for laparoscopic cholecystectomy after withholding warfarin for several days. He was able to undergo this procedure uneventfully on May 06, 2017. He received 10 mg of warfarin after surgery. Today he feels well, he is having minimal abdominal discomfort. No palpitations or chest discomfort. Social History Smoking Status: Never Smoker History of Alcohol Use: No Review of Systems Respiratory: No cough, No wheezing, No shortness of breath, No dyspnea on exertion Cardiac: No chest pain, No orthopnea, No PND, No edema, No palpitations Medications Cardiovascular: Item Value Date Time Atorvastatin 40 mg 05/05/17 0900 Calcium DAILY/PO (Lipitor Tab) Objective Vital Signs Past 12 Hours Date Time Temp Pulse Resp B/P (MAP) Pulse Ox O2 Delivery O2 Flow Rate FiO2 05/07/17 08:00 36.6 91 18 112/73 (86) 95 Nasal Cannula 3.0 05/07/17 04:15 Nasal Cannula 4.0 05/07/17 03:50 37.2 96 22 124/75 (91) 92 Nasal Cannula 4.0 05/07/17 00:09 39.4 108 22 122/69 (86) 92 Nasal Cannula 2.0 05/07/17 00:01 Nasal Cannula 2.0 Last Recorded Weight-Kilograms: 84.200 Physical Exam Constitutional: General Apperance: heathly-appearing Level of Distress: NAD Lungs: Respiratory effort: no dyspnea, good air movement Auscultation: breath sounds normal, no wheezing Cardiovascular: Heart Auscultation: RRR, no murmurs, no rubs, no gallops Peripheral Pulses: Bruits: none appreciated Extremities: no edema Data Laboratory Results: Last 24 Hours Test 05/06/17 10:30 05/06/17 11:41 05/06/17 16:46 05/06/17 17:44 Bedside Glucose 206 mg/dl 202 mg/dl 256 mg/dl Activated Partial Thromboplast Time 32.4 SECONDS Partial Thromboplastin Ratio 1.2 Test 05/06/17 20:25 05/07/17 00:15 05/07/17 05:40 05/07/17 05:57 Bedside Glucose 207 mg/dl 164 mg/dl 299 mg/dl White Blood Count 11.64 K/uL Red Blood Count 3.32 M/uL Hemoglobin 10.3 g/dL Hematocrit 29.4 % Mean Corpuscular Volume 88.6 fL Mean Corpuscular Hemoglobin 31.0 pg Mean Corpuscular Hemoglobin Concent 35.0 g/dl Platelet Count 264 K/uL Mean Platelet Volume 9.3 fL Neutrophils (%) (Auto) 84.2 % Lymphocytes (%) (Auto) 4.1 % Monocytes (%) (Auto) 11.1 % Eosinophils (%) (Auto) 0.2 % Basophils (%) (Auto) 0.1 % Neutrophils # (Auto) 9.80 K/uL Lymphocytes # (Auto) 0.48 K/uL Monocytes # (Auto) 1.29 K/uL Eosinophils # (Auto) 0.02 K/uL Basophils # (Auto) 0.01 K/uL RDW Standard Deviation 41.9 fL RDW Coefficient of Variation 12.9 % Immature Granulocyte % (Auto) 0.3 % Immature Granulocyte # (Auto) 0.04 K/uL Prothrombin Time 11.6 SECONDS Prothromb Time International Ratio 1.1 Sodium Level 128 mmol/L Potassium Level 3.6 mmol/L Chloride Level 98 mmol/L Carbon Dioxide Level 21 mmol/L Anion Gap 9.0 mmol/L Blood Urea Nitrogen 9 mg/dl Creatinine 0.97 mg/dl Est Creatinine Clear Calc Drug Dose 69.0 ml/min Estimated GFR () 88.8 Estimated GFR (Non- 76.6 BUN/Creatinine Ratio 9.5 Random Glucose 290 mg/dl Calcium Level 7.4 mg/dl Total Bilirubin 1.1 mg/dl Aspartate Amino Transf (AST/SGOT) 47 U/L Alanine Aminotransferase (ALT/SGPT) 57 U/L Alkaline Phosphatase 95 U/L Total Protein 6.0 gm/dl Albumin 2.4 gm/dl Globulin 3.6 gm/dl Albumin/Globulin Ratio 0.7 Telemetry reviewed: Sinus rhythm, sinus tachycardia no significant arrhythmia Assessment and Plan 1. Coronary disease: He has a history of coronary disease although it has been stable for many years, he does not have exertional symptoms and he has been on risk factor modification. I would continue with his current medical regimen. 2. Left ventricular thrombus: He has a possibility of left ventricular thrombus although it has not been proven conclusively. He has been on anticoagulation for a long time. I agree with restarting anticoagulation on warfarin, I do not think we need heparin as his risk of embolization is low. 3. Cardiomyopathy: He had a mild cardiomyopathy in the past although on his preop echo his left ventricular function overall was normal with wall motion abnormalities. He is not on beta blockade due to a history of bradycardia, with normalization of his left ventricular function I do not think we need to institute them. Thank you for allowing me to participate in his care.
--- NOTE | 2017-05-07 10:51 | Progress Note ---
Subjective Date of Service: May 07, 2017. Subjective Pt evaluation today including: conversation w/ patient He had a fever overnight. Patient reports no other complaints. He reports mild tenderness over his surgical wound. He has also reported having 3 bowel movements that are loose but not watery. Problem List Medical Problems: (1) Acute cholecystitis Status: Acute Review of Systems Constitutional: + fever, No chills Eyes: No worsening of vision ENT: No hearing loss Respiratory: No cough Cardiac: No chest pain Abdomen: + pain Musculoskeletal: No joint pain Male : No dysuria Neurologic: No memory loss Psychiatric: No depression symptoms Heme: No abnormal bleeding/bruising Endo: No fatigue All Other Systems: Reviewed and Negative Medications Current Inpatient Medications Medications (Trade) Dose Ordered Sig/Yavn Route Start Time Stop Time Status Last Admin Dose Admin Sodium Chloride 1,000 ml @ 125 mls/hr Q8H IV 05/04/17 20:30 06/03/17 20:29 05/07/17 20:14 125 MLS/HR Acetaminophen (Tylenol Tab) 650 mg Q4H PRN PO 05/04/17 16:30 06/03/17 16:29 05/05/17 10:50 650 MG Al Hydrox/Mg Hydrox/Simethicone (Maalox Max Susp) 15 ml Q4H PRN PO 05/04/17 16:30 06/03/17 16:29 Magnesium Hydroxide (Milk Of Magnesia Susp) 30 ml Q12H PRN PO 05/04/17 16:30 06/03/17 16:29 Zolpidem Tartrate (Ambien Tab) 5 mg HSZ PRN PO 05/04/17 16:30 06/03/17 16:29 Ondansetron HCl (Zofran Inj) 4 mg Q6H PRN IV 05/04/17 16:30 06/03/17 16:29 Nitroglycerin (Nitrostat Tab) 0.4 mg UD PRN SL 05/04/17 16:30 06/03/17 16:29 Polyethylene (Miralax Powder Packet) 17 gm DAILY PRN PO 05/04/17 16:30 06/03/17 16:29 Glucose (Glucose 40% Gel) 15-30 GRAMS 15 GRAMS... UD PRN PO 05/04/17 16:30 06/03/17 16:29 Glucose (Glucose Chew Tab) 4-8 Tablets 4 Tabl... UD PRN PO 05/04/17 16:30 06/03/17 16:29 Dextrose (Dextrose 50% 50ML Syringe) 25-50ML OF 50% DW IV FOR... UD PRN IV 05/04/17 16:30 06/03/17 16:29 Glucagon (Glucagon Inj) 1 mg UD PRN SQ 05/04/17 16:30 06/03/17 16:29 Hydralazine HCl (HydrALAZINE INJ) 15 mg Q6H PRN IV. 05/04/17 16:30 06/03/17 16:29 Piperacillin Sod/ Tazobactam Sod 3.375 gm/Dextrose 115 ml @ 28.75 mls/ hr Q8@0000,0800,1600 IV 05/05/17 00:00 05/15/17 00:00 05/07/17 16:06 28.75 MLS/HR Miscellaneous Information (Consult) 1 ea UD PRN N/A 05/04/17 16:30 06/03/17 16:29 Lactobacillus Acidophilus (Lactinex Granules Pack) 1 gm TIDM PO 05/04/17 18:15 06/03/17 18:14 05/07/17 16:06 1 GM Atorvastatin Calcium (Lipitor Tab) 40 mg DAILY PO 05/05/17 09:00 06/04/17 08:59 05/07/17 08:49 40 MG Pantoprazole Sodium 40 mg/ Syringe 10 ml @ 5 mls/min DAILY@11 IV 05/05/17 11:00 05/08/17 11:01 05/07/17 11:46 5 MLS/MIN Oxycodone/ Acetaminophen (Percocet 5-325mg Tab) 1 tab Q4H PRN PO 05/06/17 15:15 05/20/17 15:14 05/07/17 00:19 1 TAB Oxycodone/ Acetaminophen (Percocet 5-325mg Tab) 2 tab Q4H PRN PO 05/06/17 15:15 05/20/17 15:14 Morphine Sulfate (MoRPHine SULFATE INJ) 1 mg Q1H PRN IV 05/06/17 15:15 05/20/17 15:14 Morphine Sulfate (MoRPHine SULFATE INJ) 2 mg Q1H PRN IV 05/06/17 15:15 05/20/17 15:14 Morphine Sulfate (MoRPHine SULFATE INJ) 4 mg Q1H PRN IV 05/06/17 15:15 05/20/17 15:14 Warfarin Sodium (Coumadin Tab) 7.5 mg DAILY@16 PO 05/07/17 16:00 06/06/17 15:59 05/07/17 16:06 7.5 MG Naproxen (Naprosyn Tab) 500 mg BID PO 05/07/17 21:00 06/06/17 20:59 05/07/17 20:14 500 MG Insulin Aspart (novoLOG ASPART) SLIDING SCALE If C... ACHS SC 05/07/17 21:00 06/06/17 20:59 Objective Vital Signs Date Time Temp Pulse Resp B/P (MAP) Pulse Ox O2 Delivery O2 Flow Rate FiO2 05/07/17 08:00 94 Room Air 05/07/17 08:00 36.6 91 18 112/73 (86) 95 Nasal Cannula 3.0 05/07/17 04:15 Nasal Cannula 4.0 05/07/17 03:50 37.2 96 22 124/75 (91) 92 Nasal Cannula 4.0 05/07/17 00:09 39.4 108 22 122/69 (86) 92 Nasal Cannula 2.0 05/07/17 00:01 Nasal Cannula 2.0 05/06/17 20:21 37.6 92 24 130/77 (94) 94 Nasal Cannula 2.0 05/06/17 19:40 Nasal Cannula 4.0 05/06/17 16:00 Nasal Cannula 4.0 05/06/17 15:36 36.6 89 20 127/81 (96) 95 Nasal Cannula 2.0 05/06/17 12:16 85 18 129/82 (98) 93 Nasal Cannula 4.0 05/06/17 12:03 Nasal Cannula 4.0 05/06/17 11:45 36.6 89 18 130/78 (95) 90 3.0 05/06/17 11:30 36.6 90 18 131/81 (98) 91 3.0 05/06/17 11:30 Nasal Cannula 4.0 05/06/17 11:22 36.6 91 18 127/78 (94) 92 4.0 05/06/17 11:06 37 119/75 05/06/17 11:05 98 20 05/06/17 11:05 98 20 93 05/06/17 11:01 122/78 05/06/17 11:00 94 17 05/06/17 11:00 94 17 93 05/06/17 10:56 112/69 05/06/17 10:56 Nasal Cannula 3 05/06/17 10:55 95 16 05/06/17 10:55 95 16 97 05/06/17 10:51 129/78 Physical Exam Comments: General Appearance: WD/WN, no apparent distress Eyes: normal inspection, EOMI, sclerae normal ENT: normal ENT inspection, hearing grossly normal, pharynx normal Neck: supple, no adenopathy, no JVD, trachea midline Respiratory/Chest: chest non-tender, lungs clear, normal breath sounds, no respiratory distress, no accessory muscle use Cardiovascular: no edema, no gallop, no JVD, no murmur, normal rate Abdomen: normal bowel sounds, soft, no organomegaly, + tenderness (epigastric, RUQ) Extremities: normal range of motion, non-tender, normal inspection, no pedal edema, no calf tenderness, pelvis stable. right toe has redness over first MTP Neurologic/Psychiatric: bus monitor II-XII nml as tested, no motor/sensory deficits, alert, normal mood/affect, oriented x 3 Skin: normal color, warm/dry, no rash Lymphatic: no adenopathy Laboratory Results Last 24 Hours Test 05/06/17 11:41 05/06/17 16:46 05/06/17 17:44 05/06/17 20:25 Bedside Glucose 202 mg/dl 256 mg/dl 207 mg/dl Activated Partial Thromboplast Time 32.4 SECONDS Partial Thromboplastin Ratio 1.2 Test 05/07/17 00:15 05/07/17 05:40 05/07/17 05:57 Bedside Glucose 164 mg/dl 299 mg/dl White Blood Count 11.64 K/uL Red Blood Count 3.32 M/uL Hemoglobin 10.3 g/dL Hematocrit 29.4 % Mean Corpuscular Volume 88.6 fL Mean Corpuscular Hemoglobin 31.0 pg Mean Corpuscular Hemoglobin Concent 35.0 g/dl Platelet Count 264 K/uL Mean Platelet Volume 9.3 fL Neutrophils (%) (Auto) 84.2 % Lymphocytes (%) (Auto) 4.1 % Monocytes (%) (Auto) 11.1 % Eosinophils (%) (Auto) 0.2 % Basophils (%) (Auto) 0.1 % Neutrophils # (Auto) 9.80 K/uL Lymphocytes # (Auto) 0.48 K/uL Monocytes # (Auto) 1.29 K/uL Eosinophils # (Auto) 0.02 K/uL Basophils # (Auto) 0.01 K/uL RDW Standard Deviation 41.9 fL RDW Coefficient of Variation 12.9 % Immature Granulocyte % (Auto) 0.3 % Immature Granulocyte # (Auto) 0.04 K/uL Prothrombin Time 11.6 SECONDS Prothromb Time International Ratio 1.1 Sodium Level 128 mmol/L Potassium Level 3.6 mmol/L Chloride Level 98 mmol/L Carbon Dioxide Level 21 mmol/L Anion Gap 9.0 mmol/L Blood Urea Nitrogen 9 mg/dl Creatinine 0.97 mg/dl Est Creatinine Clear Calc Drug Dose 69.0 ml/min Estimated GFR () 88.8 Estimated GFR (Non- 76.6 BUN/Creatinine Ratio 9.5 Random Glucose 290 mg/dl Calcium Level 7.4 mg/dl Total Bilirubin 1.1 mg/dl Aspartate Amino Transf (AST/SGOT) 47 U/L Alanine Aminotransferase (ALT/SGPT) 57 U/L Alkaline Phosphatase 95 U/L Total Protein 6.0 gm/dl Albumin 2.4 gm/dl Globulin 3.6 gm/dl Albumin/Globulin Ratio 0.7 Assessment and Plan 72 years old man with PMHx HTN, Dyslipidemia, DMII, CVA, left ventricular thrombus on chronic AC by coumadin and Hx of bradycardia on B sandro. Presented with 2 days history of abdominal epigastric and right upper quadrant pain suggestive of acute cholecystitis. - Acute cholecystitis with sepsis, no evidence of organ failure or shock, POA S/P cholecystectomy yesterday WBC trending down, but still elevated Fever occured last night. will monitor. will recheck WBC in AM continue Zosyn. Goal is to have antibiotic for 5 days post op - H/o atrial thrombus, anticoagulated on Coumadin Low risk of embolic event. initially plan to restart heparin. But after reviewing risk of embolic event. Will hold heparin. will continue coumadin. INR is subtherapeutic - HTN: normally on Quinapril, holding given low normal BP and infection, BP stable - Dyslipidemia: Lipitor -Gout on first MTP on right foot. will monitor today. will start nsaid aleve 500 mg po bid - DM type II: hold Metformin, use Novolog SS, monitoring for hypoglycemia with decreased PO intake - GI prophylaxis: Protonix IV - DVT prophylaxis: coumadin Continued [facility] stay due to: multiple IV medications needed Discharge planning: home, uncertain
[2017-05-07] MEDS ORDERED: NAPROXEN 250 MG TAB PO ONE (11:15)
[2017-05-07] MEDS: PANTOprazole INJ 40 MG in SYRINGE 0 ML IV SCH (11:46)
--- NOTE | 2017-05-07 13:07 | Surgery Progress Note ---
Surgery Progress Note Date of Service May 07, 2017. Patient seen at 10 am Subjective Post OP Day: 1 (s/p laparoscopic cholecystectomy) + feeling well, + ambulating, + pain controlled, + diet (clear liquids), No complaints, No chest pain, No SOB, No bowel movement, No flatus, No nausea, No vomiting Objective Vital Signs: Date Time Temp Pulse Resp B/P (MAP) Pulse Ox O2 Delivery O2 Flow Rate FiO2 05/07/17 12:00 36.5 98 18 128/81 (97) 95 Room Air 05/07/17 12:00 95 Room Air 05/07/17 08:00 94 Room Air 05/07/17 08:00 36.6 91 18 112/73 (86) 95 Nasal Cannula 3.0 05/07/17 04:15 Nasal Cannula 4.0 05/07/17 03:50 37.2 96 22 124/75 (91) 92 Nasal Cannula 4.0 05/07/17 00:09 39.4 108 22 122/69 (86) 92 Nasal Cannula 2.0 05/07/17 00:01 Nasal Cannula 2.0 05/06/17 20:21 37.6 92 24 130/77 (94) 94 Nasal Cannula 2.0 05/06/17 19:40 Nasal Cannula 4.0 05/06/17 16:00 Nasal Cannula 4.0 05/06/17 15:36 36.6 89 20 127/81 (96) 95 Nasal Cannula 2.0 Physical Exam: CARMENCITA drainage (serosanguineous) General Appearance: WD/WN, no apparent distress Head: normocephalic, atraumatic Neck: trachea midline Respiratory/Chest: lungs clear, normal breath sounds, no respiratory distress, no accessory muscle use Cardiovascular: regular rate, rhythm, no murmur Abdomen: non tender, non distended, soft, no organomegaly, no pulsatile mass Incision(s): clean, dry (dressings clean and dry, incisions not inspected) Laboratory Results: Results Past 24 Hours Test 05/06/17 16:46 05/06/17 17:44 05/06/17 20:25 05/07/17 00:15 Range/Units Bedside Glucose 256 207 164 70-99 mg/dl Activated Partial Thromboplast Time 32.4 21.0-31.0 SECONDS Partial Thromboplastin Ratio 1.2 Test 05/07/17 05:40 05/07/17 05:57 05/07/17 11:34 Range/Units White Blood Count 11.64 4.8-10.8 K/uL Red Blood Count 3.32 4.7-6.1 M/uL Hemoglobin 10.3 14.0-18.0 g/dL Hematocrit 29.4 42-52 % Mean Corpuscular Volume 88.6 80-100 fL Mean Corpuscular Hemoglobin 31.0 25-34 pg Mean Corpuscular Hemoglobin Concent 35.0 32-36 g/dl Platelet Count 264 130-400 K/uL Mean Platelet Volume 9.3 7.4-10.4 fL Neutrophils (%) (Auto) 84.2 % Lymphocytes (%) (Auto) 4.1 % Monocytes (%) (Auto) 11.1 % Eosinophils (%) (Auto) 0.2 % Basophils (%) (Auto) 0.1 % Neutrophils # (Auto) 9.80 1.4-6.5 K/uL Lymphocytes # (Auto) 0.48 1.2-3.4 K/uL Monocytes # (Auto) 1.29 0.11-0.59 K/uL Eosinophils # (Auto) 0.02 0-0.5 K/uL Basophils # (Auto) 0.01 0-0.2 K/uL RDW Standard Deviation 41.9 36.4-46.3 fL RDW Coefficient of Variation 12.9 11.5-14.5 % Immature Granulocyte % (Auto) 0.3 % Immature Granulocyte # (Auto) 0.04 0.00-0.02 K/uL Prothrombin Time 11.6 9.0-12.0 SECONDS Prothromb Time International Ratio 1.1 0.9-1.1 Sodium Level 128 136-145 mmol/L Potassium Level 3.6 3.5-5.1 mmol/L Chloride Level 98 98-107 mmol/L Carbon Dioxide Level 21 21-32 mmol/L Anion Gap 9.0 3-11 mmol/L Blood Urea Nitrogen 9 7-18 mg/dl Creatinine 0.97 0.60-1.40 mg/dl Est Creatinine Clear Calc Drug Dose 69.0 ml/min Estimated GFR () 88.8 Estimated GFR (Non- 76.6 BUN/Creatinine Ratio 9.5 10-20 Random Glucose 290 70-99 mg/dl Calcium Level 7.4 8.5-10.1 mg/dl Total Bilirubin 1.1 0.2-1 mg/dl Aspartate Amino Transf (AST/SGOT) 47 15-37 U/L Alanine Aminotransferase (ALT/SGPT) 57 12-78 U/L Alkaline Phosphatase 95 45-117 U/L Total Protein 6.0 6.4-8.2 gm/dl Albumin 2.4 3.4-5.0 gm/dl Globulin 3.6 2.5-4.0 gm/dl Albumin/Globulin Ratio 0.7 0.9-2 Bedside Glucose 299 242 70-99 mg/dl Assessment & Plan POD # 1 s/p laparoscopic cholecystectomy -febrile last night - leukocytosis improved -CARMENCITA with serosanguineous output - adequate pain control, tolerating clear liquids Plan: Encouraged PO Percocet as needed for pain instead of IV medications advance diet as tolerated continue current medical management repeat am labs encourage OOB to chair and ambulation continue CARMENCITA to bulb suction, hopefully to discontinue tomorrow will follow Dr. Hardin has seen patient, agrees with above
[2017-05-07] MEDS: WARFARIN SOD 7.5 MG TAB PO SCH (16:06)
[2017-05-07] MEDS: NAPROXEN 250 MG TAB PO SCH (20:14)
[2017-05-07] MEDS ORDERED: NURSING VERBAL MED ORDER ONE (21:00)
[2017-05-08 03:37] VITALS: BP 111/66; PULSE 94; TEMP 36.8; O2SAT 91
[2017-05-08] MEDS: SODIUM CHLORIDE 0.9% 1000ML 1,000 ML IV SCH (04:23)
[2017-05-08 05:57] LABS: INR 1.3 (0.9-1.1)
[2017-05-08] MEDS: NAPROXEN 250 MG TAB PO SCH (07:25)
[2017-05-08] MEDS: LACTOBACILLUS ACIDOPHILUS 1 GM PACK PO SCH ×3 (07:25→16:55)
[2017-05-08] MEDS: ATORVASTATIN 20 MG TAB PO SCH (07:25)
[2017-05-08] MEDS: PIPERACILL/TAZOBAC IV 3.375 GM in DEXTROSE 5% 100ML 100 ML IV SCH ×2 (07:29→16:56)
[2017-05-08] MEDS: INSULIN ASPART 100 UNITS/ML 3 ML PEN SC SCH ×3 (07:35→17:01)
[2017-05-08 08:02] VITALS: BP 122/72; PULSE 96; TEMP 37; O2SAT 94
[2017-05-08 08:14] LABS: HEMATOCRIT 27.7 % (42-52); HEMOGLOBIN 9.8 g/dL (14.0-18.0); MEAN CELL VOLUME 87.7 fL (80-100); MEAN CORPUSCULAR HGB CONC 35.4 g/dl (32-36); PLATELET COUNT 253 K/uL (130-400); RED CELL DISTRIBUTION WIDTH CV 12.9 % (11.5-14.5); RED CELL DISTRIBUTION WIDTH SD 41.7 fL (36.4-46.3); WHITE BLOOD COUNT 9.64 K/uL (4.8-10.8)
[2017-05-08 08:27] LABS: ALBUMIN 2.3 gm/dl (3.4-5.0); CALCIUM 7.3 mg/dl (8.5-10.1); CREATININE 0.93 mg/dl (0.60-1.40); POTASSIUM 3.6 mmol/L (3.5-5.1)
[2017-05-08 08:30] LABS: TOTAL PROTEIN 5.5 gm/dl (6.4-8.2)
[2017-05-08] MEDS ORDERED: OXYC-57 PO ×5 (10:07→10:30)
--- NOTE | 2017-05-08 10:07 | Consultant Recommendations ---
Air Chipper Recommendations Date of Service May 08, 2017. Air Chipper Recommendations No heavy lifting over 10 pounds for 3-4 weeks No strenuous activity until cleared by surgeon No submerging incisions underwater for 2 weeks (no bathing, swimming, or hot tubs) No driving while taking narcotic pain medication or until you are pain free You may shower in 4 days, sponge bath and wash hair in meantime. Keep dressings clean and dry. After 4 days, remove dressings and replace daily. Leave steri strips on incisions for 7 days and then remove. they may fall off on their own that is okay Walking and light activity is encouraged You will be given prescription for narcotic pain medication. This medication may make you drowsy and can cause constipation. Take OTC stool softener daily such as Colace and plenty of water to combat constipation. You may take extra strength Tylenol or Ibuprofen as needed for mild pain Follow-up in surgical office in 1 week, please call office at [phone] to make an appointment.
--- NOTE | 2017-05-08 10:10 | Surgery Progress Note ---
Surgery Progress Note Date of Service May 08, 2017. Subjective Post OP Day: 2 (s/p lap branden) + feeling well, + ambulating, + pain controlled, + diet (regular diet), No complaints, No chest pain, No SOB, No nausea, No vomiting Objective Vital Signs: Date Time Temp Pulse Resp B/P (MAP) Pulse Ox O2 Delivery O2 Flow Rate FiO2 05/08/17 08:02 37.0 96 18 122/72 (89) 94 05/08/17 04:23 Room Air 05/08/17 03:37 36.8 94 18 111/66 (81) 91 Room Air 05/07/17 23:45 Room Air 05/07/17 23:30 36.9 97 17 116/73 (87) 90 Room Air 05/07/17 20:14 Room Air 05/07/17 19:25 36.9 95 20 126/78 (94) 94 Room Air 05/07/17 16:00 Room Air 05/07/17 15:26 36.6 90 20 115/74 (88) 96 Room Air 05/07/17 12:00 36.5 98 18 128/81 (97) 95 Room Air 05/07/17 12:00 95 Room Air Physical Exam: MARTY drainage (minimal serous drainage) General Appearance: WD/WN, no apparent distress Head: normocephalic, atraumatic Neck: trachea midline Abdomen: non tender, non distended, soft, no organomegaly, no pulsatile mass Incision(s): clean, dry (dressings clean and dry, incisions not inspected) Laboratory Results: Results Past 24 Hours Test 05/07/17 11:34 05/07/17 16:18 05/07/17 20:58 05/08/17 05:32 Range/Units Bedside Glucose 242 193 154 70-99 mg/dl White Blood Count 9.64 4.8-10.8 K/uL Red Blood Count 3.16 4.7-6.1 M/uL Hemoglobin 9.8 14.0-18.0 g/dL Hematocrit 27.7 42-52 % Mean Corpuscular Volume 87.7 80-100 fL Mean Corpuscular Hemoglobin 31.0 25-34 pg Mean Corpuscular Hemoglobin Concent 35.4 32-36 g/dl RDW Standard Deviation 41.7 36.4-46.3 fL RDW Coefficient of Variation 12.9 11.5-14.5 % Platelet Count 253 130-400 K/uL Mean Platelet Volume 9.0 7.4-10.4 fL Sodium Level 133 136-145 mmol/L Potassium Level 3.6 3.5-5.1 mmol/L Chloride Level 101 98-107 mmol/L Carbon Dioxide Level 25 21-32 mmol/L Anion Gap 7.0 3-11 mmol/L Blood Urea Nitrogen 11 7-18 mg/dl Creatinine 0.93 0.60-1.40 mg/dl Est Creatinine Clear Calc Drug Dose 72.0 ml/min Estimated GFR () 93.4 Estimated GFR (Non- 80.6 BUN/Creatinine Ratio 11.3 10-20 Random Glucose 148 70-99 mg/dl Calcium Level 7.3 8.5-10.1 mg/dl Total Bilirubin 0.8 0.2-1 mg/dl Aspartate Amino Transf (AST/SGOT) 49 15-37 U/L Alanine Aminotransferase (ALT/SGPT) 62 12-78 U/L Alkaline Phosphatase 121 45-117 U/L Total Protein 5.5 6.4-8.2 gm/dl Albumin 2.3 3.4-5.0 gm/dl Globulin 3.2 2.5-4.0 gm/dl Albumin/Globulin Ratio 0.7 0.9-2 Test 3/18 05:36 05/08/17 06:45 Range/Units Prothrombin Time 13.9 9.0-12.0 SECONDS Prothromb Time International Ratio 1.3 0.9-1.1 Bedside Glucose 162 70-99 mg/dl Assessment & Plan POD # 2 s/p laparoscopic cholecystectomy -afebrile last night - leukocytosis resolved -MARTY with serous output, minimal - adequate pain control, tolerating regular diet Plan: discontinue marty drain Will discontinue IV fluids as taking po well Discontinue IV protonix , start po protonix as takes Prilosec at home From surgical standpoint, may be discharged, follow up in 1 week, discharge instructions reviewed Rx for Percocet as needed for pain Dr. Hardin has seen and examined patient, agrees with above
[2017-05-08 12:02] VITALS: BP 129/70; PULSE 95; TEMP 36.9; O2SAT 95
[2017-05-08 15:52] VITALS: BP 129/76; PULSE 94; TEMP 36.4; O2SAT 97
--- NOTE | 2017-05-08 16:45 | DIAGNOSTIC IMAGING REPORT ---
TWO VIEW CHEST CLINICAL HISTORY: Wheezing. FINDINGS: PA and lateral chest radiographs are compared to study dated 05/04/2017. The cardiomediastinal silhouette is unremarkable. Heart is top normal for projection and there is atherosclerotic calcification of the thoracic aorta. There is elevation of the right hemidiaphragm and bibasilar atelectasis. Chronic interstitial thickening is similar to previous. No airspace consolidation or pleural effusion is identified. There is no pneumothorax. The skeletal structures are osteopenic. The bony thorax appears intact. Degenerative change is seen throughout the thoracic spine. Cholecystectomy clips are noted in the upper abdomen. IMPRESSION: No acute cardiopulmonary abnormality. Electronically signed by: Jamie Alcantara M.D. 05/08/2017 4:44 PM Dictated Date/Time: 05/08/2017 4:39 PM
[2017-05-08] MEDS: WARFARIN SOD 7.5 MG TAB PO SCH (16:56)
[2017-05-08] MEDS ORDERED: NPR250 PO (17:28)
--- NOTE | 2017-05-08 17:29 | Discharge Instructions ---
Discharge Instructions Date of Service May 08, 2017. Admission Reason for Admission: Acute Cholecystitis Discharge Discharge Diagnosis / Problem: Acute Cholecystitis Discharge Goals Goal(s): Improve function Activity Recommendations Activity Limitations: resume your previous activity . Instructions / Follow-Up Instructions / Follow-Up Follow up with PCP in 1 week Current Hospital Diet Patient's current hospital diet: Diabetes Type 1 Diet, AHA Diet (Heart Healthy) , Low Fiber Diet Discharge Diet Recommended Diet: AHA Diet (Heart Healthy), Diabetes Type 2 Diet, Low Fiber Diet Procedures Procedures Performed: Laparoscopic Cholecystectomy Pending Studies Studies pending at discharge: no Laboratory Results Hemoglobin A1c Test 05/05/17 07:27 Range/Units Estimated Average Glucose 166 mg/dl Hemoglobin A1c 7.4 H 4.5-5.6 % Medical Emergencies . Who to Call and When: Medical Emergencies: If at any time you feel your situation is an emergency, please call 911 immediately. . Non-Emergent Contact Non-Emergency issues call your: Primary Care Provider, Surgeon Call Non-Emergent contact if: your pain is not controlled, you have any medication questions . . "Provider Documentation" section prepared by Jorge Carrion. . Mental Health Assistant Recommendations Mental Health Assistant Recommendations: No heavy lifting over 10 pounds for 3-4 weeks No strenuous activity until cleared by surgeon No submerging incisions underwater for 2 weeks (no bathing, swimming, or hot tubs) No driving while taking narcotic pain medication or until you are pain free You may shower in 4 days, sponge bath and wash hair in meantime. Keep dressings clean and dry. After 4 days, remove dressings and replace daily. Leave steri strips on incisions for 7 days and then remove. they may fall off on their own that is okay Walking and light activity is encouraged You will be given prescription for narcotic pain medication. This medication may make you drowsy and can cause constipation. Take OTC stool softener daily such as Colace and plenty of water to combat constipation. You may take extra strength Tylenol or Ibuprofen as needed for mild pain Follow-up in surgical office in 1 week, please call office at [phone] to make an appointment.
[2017-05-08 17:30] VITALS: BP 129/76; PULSE 94; TEMP 36.4; O2SAT 97
[2017-05-08] MEDS ORDERED: LCTX PO (17:41)
[2017-05-08] MEDS ORDERED: METR500T PO (17:41)
[2017-05-08] MEDS ORDERED: LVQ500 PO (17:41)
[2017-05-08] MEDS ORDERED: PANTOprazole SOD 40 MG TAB PO SCH (21:00)
--- NOTE | 2017-05-08 22:04 | Discharge Summary ---
Discharge Summary Date of Service May 08, 2017. Discharge Summary Admission Date: May 04, 2017 at 16:45 Discharge Date: May 08, 2017 Hospital Course 72 years old man with PMHx HTN, Dyslipidemia, DMII, CVA, left ventricular thrombus on chronic AC by coumadin and Hx of bradycardia on B sandro. Presented with 2 days history of abdominal epigastric and right upper quadrant pain suggestive of acute cholecystitis. - Acute cholecystitis with sepsis, no evidence of organ failure or shock, POA S/P cholecystectomy yesterday WBC trending down, but still elevated Fever occured last night. will monitor. will recheck WBC in AM continue Zosyn. Goal is to have antibiotic for 5 days post op - H/o atrial thrombus, anticoagulated on Coumadin Low risk of embolic event. initially plan to restart heparin. But after reviewing risk of embolic event. Will hold heparin. will continue coumadin. INR is subtherapeutic - HTN: normally on Quinapril, holding given low normal BP and infection, BP stable - Dyslipidemia: Lipitor -Gout on first MTP on right foot. will monitor today. will start nsaid aleve 500 mg po bid - DM type II: hold Metformin, use Novolog SS, monitoring for hypoglycemia with decreased PO intake - GI prophylaxis: Protonix IV - DVT prophylaxis: coumadin This includes examination of the patient, discharge planning, medication reconciliation, and communication with other providers. Discharge Instructions Please refer to the electronic Patient Visit Report (Discharge Instructions) for additional information.
== END 2017-05-08 18:07 | disposition home or self-care (01) | DRG 854 ==
LOC: C.EDB 11:44 → C.2T 16:45 → ENRESERV 17:06
PROVIDERS: ADMIT Internal Medicine; ATTEND Internal Medicine Sports Medicine
PROC: 0FT44ZZ Resection of Gallbladder, Percutaneous Endoscopic Approach (ICD-10-PCS; principal; 2017-05-06 10:15)
DX: A41.9 Sepsis, unspecified organism (principal); K80.00 Calculus of gallbladder with acute cholecystitis without obstruction; E86.0 Dehydration; R00.0 Tachycardia, unspecified; E78.5 Hyperlipidemia, unspecified; E11.9 Type 2 diabetes mellitus without complications; M10.9 Gout, unspecified; I10 Essential (primary) hypertension; Z87.891 Personal history of nicotine dependence; Z86.73 Personal history of transient ischemic attack (TIA), and cerebral infarction without residual deficits; Z86.718 Personal history of other venous thrombosis and embolism; Z79.84 Long term (current) use of oral hypoglycemic drugs; Z79.01 Long term (current) use of anticoagulants

== ENCOUNTER → 2017-06-05 | Day surgery (SDC) | payer OTHER ==
[2017-05-23 10:46] VITALS: Ht 177.8 cm; Wt 77.3 kg
[~2017-06-05] VITALS: Ht 177.8 cm; Wt 77.3 kg
[~2017-06-05] MED LIST: 500ML BSS 0.3ML EPI 1:1000PF IRRIG ONE; ACETAMINOPHEN 325 MG TAB PO PRN; AMVISC PLUS 0.8ML SYRINGE INT OCU ONE; ATOR-24 PO; ATROPINE SULFATE 0.1 MG/ML 5ML SYR IV PRN; BSS FLUSH ONE; CHOL100010 PO; ENDOCOAT 0.85ML SYRINGE INT OCU ONE; EpHEDrine SULFATE INJ 50 MG/ML AMP IV PRN; EpINEphrine INJ 1MG/ML AMP 1 MG/ML AMP ONE; GLC/500 PO; LACTATED RINGER'S 1000ML 500 ML IV SCH; LIDOCAINE 4% OP SOLN DROP CHARGE ONE; LIDOCAINE 4% OP SOLN DROP CHARGE OPR SCH; LIDOCAINE HCL 1% MPF 2 ML VIAL ONE; MIDAZOLAM HCL 1 MG/ML 2ML VIAL ONE; MIX: 4ML BSS 1ML EPI 1:1000 PF TOP ONE; MOXIFLOXACIN OPH SOLN PER DROP CHARGE ONE; MULT-506 PO; OMEG10007 PO; POVIDONE-IODINE OP SOLN 30 ML BTL ONE; PROPARACAINE 0.5% OP SOLN PER DROP CHARGE OPR SCH; QUIN20TA30 PO; SPIR25TA PO; TOBRAMYCIN/DEXAMETHASONE OPH OINT PER APPLN CHARGE ONE; WARF10TA4 PO; WARF7.5T4 PO
[2017-06-05] MEDS: PHENYLEPHRINE HCL 2.5% OP SOLN PER DROP CHARGE OPR SCH ×3 (09:14→09:24)
[2017-06-05] MEDS: TROPICAMIDE 1% OP SOLN PER DROP CHARGE OPR SCH ×3 (09:15→09:25)
[2017-06-05] MEDS: CYCLOPENTOLATE HCL 1% OP SOLN PER DROP CHARGE OPR SCH ×3 (09:16→09:26)
[2017-06-05] MEDS: MOXIFLOXACIN OPH SOLN PER DROP CHARGE OPR SCH ×3 (09:17→09:27)
--- NOTE | 2017-06-05 10:31 | [facility] Post Operative Brief Note ---
Immediate Operative Summary Operative Date Jun 05, 2017. Pre-Operative Diagnosis Right Eye Cataract Post-Operative Diagnosis Same Procedure(s) Performed Right Cataract Phacoemulsification With Intraocular Lens Implant Surgeon Dr. Harper Stark Noodle Press Operator Surgeon(s) None Estimated Blood Loss 0 Findings Consistent with Post-Op Diagnosis Specimens None Anesthesia Type MAC Complication(s) none Disposition Accompanied Pt To Recovery: no Disposition:
--- NOTE | 2017-06-05 10:32 | [facility] Operative Report ---
Operative Report Date of Service Jun 05, 2017. Operative Report DATE OF OPERATION: 06/05/17 PREOPERATIVE DIAGNOSIS: Senile nuclear cataract, right eye POSTOPERATIVE DIAGNOSIS: Senile nuclear cataract, right eye PROCEDURE PERFORMED: Phacoemulsification with intraocular lens implantation, right eye SURGEON: Dr. Suhail Stark ANESTHESIA: Topical with 1% intracameral lidocaine and monitored anesthesia care COMPLICATIONS: None DESCRIPTION OF PROCEDURE: After positively identifying the patient both verbally and by wristband in the preoperative area, the right eye was marked as the operative eye. The patient was then brought back to the operating room by the anesthesia and nursing staff where they were given a drop of Lidocaine and betadine into the operative eye. They were then sterilely prepped and draped in the standard fashion typical for ophthalmic surgery. Steri-strips were placed along the upper eyelids to keep the lashes back, and a lid speculum was placed into the operative eye. At this point, a documented time out was performed with members of the ophthalmology, nursing, and anesthesia staffs all agreeing upon the correct patient, correct location for surgery, correct procedure, and correct type and power of intraocular lens to be implanted. The microscope was then swung into position. First, a paracentesis wound was made using a sideport blade. Then, in sequence, 1% preservative-free lidocaine followed by Endocoat viscoelastic was injected into the anterior chamber. Next , the main incision was made with a keratome blade in triplanar fashion. A sharp cystotome was introduced into the eye and used to create a tear in the anterior capsule, which was directed into a continuous curvilinear capsulorrhexis using Utrata forceps. Hydrodissection was then performed with BSS on a flat-tip cannula. Next, the phacoemulsification handpiece was introduced into the eye and used to remove the nucleus in a [id number] fashion. This was done without complication and then the irrigation-aspiration handpiece was introduced into the eye and used to remove all remaining cortical and epinuclear material. Amvisc was then injected into the anterior chamber as well as into the capsular bag and using the lens injector system, an MX60 23.0 D lens, serial number [id number], and expiration date 11/2019 was injected into the capsular bag and rotated into the correct position. Next, the irrigation- aspiration handpiece was used to remove all remaining Amvisc. BSS was used to hydrate the main wound, and then BSS was injected into the paracentesis site to reach physiologic pressure and then the main wound was checked and found to be watertight. The patient was given drops of Vigamox and Tobradex ointment into the operative eye, and then the surrounding area was cleaned and dried. A clear plastic shield was placed over the eye and the patient was then sat up and taken from the operating room by the anesthesia staff having tolerated the procedure well and suffering no complications. DISPOSITION: The patient was returned to the recovery room in stable condition. I attest to the content of the Intraoperative Record and any orders documented therein. Any exceptions are noted below.
[2017-06-05 10:33] VITALS: TEMP 37.1
--- NOTE | 2017-06-05 10:33 | Discharge Instructions-SurgCtr ---
Discharge Instructions Date of Service Jun 05, 2017. Visit Reason for Visit: Right Cataract Discharge Discharge Diagnosis / Problem: right cataract Discharge Goals Goal(s): Decrease discomfort, Improve function Medications Stopped Medications Name(s): Metformin stopped for 2 days Activity Recommendations Activity Limitations: as noted below Anesthesia . Post Anesthesia Instructions: If you have had General Anesthesia or IV Sedation: * Do not drive today. * Resume driving when surgeon permits. * Do not make important decisions or sign legal documents today. * Call surgeon for: 1. Temperature elevations greater than 101 degrees F. 2. Uncontrollable pain. 3. Excessive bleeding. 4. Persistent nausea and vomiting. 5. Medication intolerance (nausea, vomiting or rash). * For nausea and vomiting use only clear liquids such as: tea, soda, bouillon until nausea subsides, then gradually increase diet as tolerated. * If you have any concerns or questions, call your surgeon's office. If physician is unavailable and it is an emergency, call 911 or go to the nearest emergency room. . Instructions / Follow-Up Instructions / Follow-Up ACTIVITY RECOMMENDATIONS: * Light activities. * You may walk outside, read, watch television. * You may notice redness on the white part of the eye and some blurry vision - this is normal. MEDICATIONS: Resume previous medications unless instructed otherwise by your surgeon. Start all eye drops at 12:30 pm today: * Eye drops (today): Prednisone - one drop in operative eye every 2 hours while awake Ofloxacin - one drop in operative eye every 2 hours while awake Ketorolac - one drop in operative eye daily SPECIAL CARE INSTRUCTIONS: * Tape plastic shield over eye to sleep at night. Call your doctor at with any concerns or problems. FOLLOW UP VISIT: Follow-up with Dr Stark at [facility] as scheduled. Diet Recommendations Home Diet: no limitations Procedures Procedures Performed: Right Cataract Phacoemulsification With Intraocular Lens Implant Pending Studies Studies pending at discharge: no Medical Emergencies . Who to Call and When: Medical Emergencies: If at any time you feel your situation is an emergency, please call 911 immediately. . Non-Emergent Contact Non-Emergency issues call your: Surgeon . . "Provider Documentation" section prepared by Suhail Stark. .
--- NOTE | 2017-06-05 10:34 | Anesthesia Progress Nt - [facility] ---
Anesthesia Post Op Note Date & Time Jun 05, 2017 at 10:34 Vital Signs Pain Intensity: 0 Vital Signs Past 12 Hours Date Time Temp Pulse Resp B/P (MAP) Pulse Ox O2 Delivery O2 Flow Rate FiO2 06/05/17 09:06 36.5 85 16 126/83 (97) 98 Room Air Notes Mental Status: alert / awake / arousable, participated in evaluation Pt Amnestic to Procedure: Yes Nausea / Vomiting: adequately controlled Pain: adequately controlled Airway Patency, RR, SpO2: stable & adequate BP & HR: stable & adequate Hydration State: stable & adequate Anesthetic Complications: no major complications apparent
[2017-06-05 11:00] VITALS: BP 118/75; PULSE 74; O2SAT 95
== END | disposition home or self-care (01) ==
LOC: X.SURG 08:33
PROVIDERS: ATTEND Ophthalmology
DX: E11.36 Type 2 diabetes mellitus with diabetic cataract (principal); H25.11 Age-related nuclear cataract, right eye; I10 Essential (primary) hypertension; I25.2 Old myocardial infarction; Z86.711 Personal history of pulmonary embolism; Z86.73 Personal history of transient ischemic attack (TIA), and cerebral infarction without residual deficits; Z85.828 Personal history of other malignant neoplasm of skin; Z98.890 Other specified postprocedural states; Z87.891 Personal history of nicotine dependence; Z79.82 Long term (current) use of aspirin; Z79.01 Long term (current) use of anticoagulants; Z79.899 Other long term (current) drug therapy; Z90.49 Acquired absence of other specified parts of digestive tract

== ENCOUNTER → 2017-06-26 | Day surgery (SDC) | payer OTHER ==
[2017-06-13 10:13] VITALS: Ht 177.8 cm; Wt 77.3 kg
[~2017-06-26] VITALS: Ht 177.8 cm; Wt 77.3 kg
[~2017-06-26] MED LIST changes: +LIDOCAINE 4% OP SOLN DROP CHARGE OPL SCH; -LIDOCAINE 4% OP SOLN DROP CHARGE OPR SCH; +PROPARACAINE 0.5% OP SOLN PER DROP CHARGE OPL SCH; -PROPARACAINE 0.5% OP SOLN PER DROP CHARGE OPR SCH
[2017-06-26] MEDS: PHENYLEPHRINE HCL 2.5% OP SOLN PER DROP CHARGE OPL SCH ×3 (07:28→07:37)
[2017-06-26] MEDS: TROPICAMIDE 1% OP SOLN PER DROP CHARGE OPL SCH ×3 (07:29→07:38)
[2017-06-26] MEDS: CYCLOPENTOLATE HCL 1% OP SOLN PER DROP CHARGE OPL SCH ×3 (07:30→07:39)
[2017-06-26] MEDS: MOXIFLOXACIN OPH SOLN PER DROP CHARGE OPL SCH ×3 (07:32→07:40)
--- NOTE | 2017-06-26 08:39 | [facility] Post Operative Brief Note ---
Immediate Operative Summary Operative Date June 26, 2017. Pre-Operative Diagnosis Left Eye cataract Post-Operative Diagnosis Same Procedure(s) Performed Left Eye Cataract Phacoemulsification With Intraocular Lens Implant Surgeon Dr. Stark Loom Operator Apprentice Surgeon(s) None Estimated Blood Loss None Findings Consistent with Post-Op Diagnosis Specimens None Anesthesia Type MAC Complication(s) none Disposition Accompanied Pt To Recovery: no Disposition:
--- NOTE | 2017-06-26 08:40 | [facility] Operative Report ---
Operative Report Date of Service June 26, 2017. Operative Report DATE OF OPERATION: 06/26/17 PREOPERATIVE DIAGNOSIS: Senile nuclear cataract, left eye POSTOPERATIVE DIAGNOSIS: Senile nuclear cataract, left eye PROCEDURE PERFORMED: Phacoemulsification with intraocular lens implantation, left eye SURGEON: Dr. Suhail Stark ANESTHESIA: Topical with 1% intracameral lidocaine and monitored anesthesia care COMPLICATIONS: None DESCRIPTION OF PROCEDURE: After positively identifying the patient both verbally and by wristband in the preoperative area, the left eye was marked as the operative eye. The patient was then brought back to the operating room by the anesthesia and nursing staff where they were given a drop of Lidocaine and betadine into the operative eye. They were then sterilely prepped and draped in the standard fashion typical for ophthalmic surgery. Steri-strips were placed along the upper eyelids to keep the lashes back, and a lid speculum was placed into the operative eye. At this point, a documented time out was performed with members of the ophthalmology, nursing, and anesthesia staffs all agreeing upon the correct patient, correct location for surgery, correct procedure, and correct type and power of intraocular lens to be implanted. The microscope was then swung into position. First, a paracentesis wound was made using a sideport blade. Then, in sequence, 1% preservative-free lidocaine followed by Endocoat viscoelastic was injected into the anterior chamber. Next , the main incision was made with a keratome blade in triplanar fashion. A sharp cystotome was introduced into the eye and used to create a tear in the anterior capsule, which was directed into a continuous curvilinear capsulorrhexis using Utrata forceps. Hydrodissection was then performed with BSS on a flat-tip cannula. Next, the phacoemulsification handpiece was introduced into the eye and used to remove the nucleus in a [id number] fashion. This was done without complication and then the irrigation-aspiration handpiece was introduced into the eye and used to remove all remaining cortical and epinuclear material. Amvisc was then injected into the anterior chamber as well as into the capsular bag and using the lens injector system, an MX60 23.5 D lens, serial number [id number], and expiration date 02/2020 was injected into the capsular bag and rotated into the correct position. Next, the irrigation- aspiration handpiece was used to remove all remaining Amvisc. BSS was used to hydrate the main wound, and then BSS was injected into the paracentesis site to reach physiologic pressure and then the main wound was checked and found to be watertight. The patient was given drops of Vigamox and Tobradex ointment into the operative eye, and then the surrounding area was cleaned and dried. A clear plastic shield was placed over the eye and the patient was then sat up and taken from the operating room by the anesthesia staff having tolerated the procedure well and suffering no complications. DISPOSITION: The patient was returned to the recovery room in stable condition. I attest to the content of the Intraoperative Record and any orders documented therein. Any exceptions are noted below.
--- NOTE | 2017-06-26 08:41 | Discharge Instructions-SurgCtr ---
Discharge Instructions Date of Service June 26, 2017. Visit Reason for Visit: Left Cataract Discharge Discharge Diagnosis / Problem: left cataract Discharge Goals Goal(s): Decrease discomfort, Improve function Medications Stopped Medications Name(s): Stopped taking Metformin two days ago. Activity Recommendations Activity Limitations: as noted below Anesthesia . Post Anesthesia Instructions: If you have had General Anesthesia or IV Sedation: * Do not drive today. * Resume driving when surgeon permits. * Do not make important decisions or sign legal documents today. * Call surgeon for: 1. Temperature elevations greater than 101 degrees F. 2. Uncontrollable pain. 3. Excessive bleeding. 4. Persistent nausea and vomiting. 5. Medication intolerance (nausea, vomiting or rash). * For nausea and vomiting use only clear liquids such as: tea, soda, bouillon until nausea subsides, then gradually increase diet as tolerated. * If you have any concerns or questions, call your surgeon's office. If physician is unavailable and it is an emergency, call 911 or go to the nearest emergency room. . Instructions / Follow-Up Instructions / Follow-Up ACTIVITY RECOMMENDATIONS: * Light activities. * You may walk outside, read, watch television. * You may notice redness on the white part of the eye and some blurry vision - this is normal. MEDICATIONS: Resume previous medications unless instructed otherwise by your surgeon. Start all eye drops at 10:30 am today: * Eye drops (today): Prednisone - one drop in operative eye every 2 hours while awake Ofloxacin - one drop in operative eye every 2 hours while awake Ketorolac - one drop in operative eye daily SPECIAL CARE INSTRUCTIONS: * Tape plastic shield over eye to sleep at night. Call your doctor at with any concerns or problems. FOLLOW UP VISIT: Follow-up with Dr Stark at [place] office as scheduled. Diet Recommendations Home Diet: no limitations Procedures Procedures Performed: Left Eye Cataract Phacoemulsification With Intraocular Lens Implant Pending Studies Studies pending at discharge: no Medical Emergencies . Who to Call and When: Medical Emergencies: If at any time you feel your situation is an emergency, please call 911 immediately. . Non-Emergent Contact Non-Emergency issues call your: Surgeon . . "Provider Documentation" section prepared by Suhail Stark. .
--- NOTE | 2017-06-26 09:07 | Anesthesia Progress Nt - [facility] ---
Anesthesia Post Op Note Date & Time June 26, 2017 at 09:07 Vital Signs Pain Intensity: 0 Vital Signs Past 12 Hours Date Time Temp Pulse Resp B/P (MAP) Pulse Ox O2 Delivery O2 Flow Rate FiO2 06/26/17 08:41 36.5 80 12 108/73 (85) 100 Room Air 06/26/17 07:21 36.5 86 18 121/85 (97) 97 Room Air Notes Mental Status: alert / awake / arousable, participated in evaluation Pt Amnestic to Procedure: Yes Nausea / Vomiting: adequately controlled Pain: adequately controlled Airway Patency, RR, SpO2: stable & adequate BP & HR: stable & adequate Hydration State: stable & adequate Anesthetic Complications: no major complications apparent
[2017-06-26 09:14] VITALS: BP 112/71; PULSE 77; O2SAT 96
== END | disposition home or self-care (01) ==
LOC: X.SURG 07:01
PROVIDERS: ATTEND Ophthalmology
DX: E11.36 Type 2 diabetes mellitus with diabetic cataract (principal); H25.12 Age-related nuclear cataract, left eye; Z90.49 Acquired absence of other specified parts of digestive tract; Z98.41 Cataract extraction status, right eye; Z79.82 Long term (current) use of aspirin; Z79.899 Other long term (current) drug therapy; Z86.73 Personal history of transient ischemic attack (TIA), and cerebral infarction without residual deficits